=== PATIENT | female | born 1955 | race Hispanic/Latino ===

== ENCOUNTER 2018-01-13 17:10 | Inpatient (IN) | payer OTHER ==
[2018-01-13] MEDS ORDERED: ALBUTEROL 2.5 MG/3 ML NEB SOL NEB SCH (18:00)
[2018-01-13] MEDS: Levofloxacin 750mg IV 750 MG/150 ML BAG IV SCH (18:00)
[2018-01-13 18:04] VITALS: BMI 52.9
[2018-01-13 18:56] LABS: Absolute Lymphocytes (CBC) 1.2 K/uL (0.7-4.9); Absolute Monocytes 0.7 K/uL (0.1-1.3); Absolute Neutrophil 11.3 K/uL (1.8-8.0); Basophils % 0.5 % (0-1.3); Eosinophils % 0.7 % (0-4.4); Hematocrit 29.3 % (36.0-45.0); Lymphocytes % 9.2 % (15.3-44.8); MCH 19.9 pg (27.0-35.0); MCV 67.9 fL (80-100); Monocytes % 5.3 % (3.3-12.3); RBC Red Blood Cell Count 4.32 M/uL (3.86-4.86)
[2018-01-13 19:14] LABS: Albumin 3.5 g/dL (3.2-5.5); Bilirubin Total 0.6 mg/dL (0.3-1.2); Potassium 3.8 mEq/L (3.6-5.0); Protein, Total 7.4 g/dL (6.0-8.3)
[2018-01-13 19:21] LABS: Platelet Estimate ADEQ; Urine White Blood Cell Casts OK
[2018-01-13 19:22] LABS: Anisocytosis 3+; Blood Morphology Comment NOTED (NOT SEEN); Hypochromasia 2+; Ovalocytes SLIGHT; Target Cells FEW
[2018-01-13] MEDS ORDERED: GLUCAGON 1 MG/VIAL IM PRN (19:44)
[2018-01-13] MEDS ORDERED: D50W 25 GM/50 ML SYRINGE IV PRN (19:44)
[2018-01-13] MEDS ORDERED: ACETAMINOPHEN 500 MG TAB PO PRN (19:47)
[2018-01-13] MEDS: ALBUTEROL 2.5 MG/3 ML NEB SOL NEB SCH (20:19)
[2018-01-13] MEDS: INSULIN -REGULAR HUMAN 50 UNIT/0.5 ML ML SQ SCH (21:00)
[2018-01-13] MEDS ORDERED: PNEUMOCOCCAL VACCINE 0.5 ML IMVAC ONE (21:00)
[2018-01-13] MEDS ORDERED: INFLUENZA VACCINE (for 3y+) 0.5 ML DOSE IMVAC ONE (21:00)
[2018-01-13 23:59] LABS: Urine Appearance CLEAR; Urine Bilirubin NEGATIVE (NEG); Urine Blood NEGATIVE (NEG); Urine Color YELLOW; Urine Glucose NEGATIVE (NEG); Urine Protein NEGATIVE (NEG); Urine Specific Gravity 1.015 (1.005-1.030); Urine Urobilinogen 0.2 mg/dL (0.2-1.0); Urine pH 5.5 (5.0-7.0)
[2018-01-14] LABS: Urine Microscopic Reflex NO UMIC
[2018-01-14] MEDS: ZOLPIDEM TARTRATE 5 MG TABLET PO PRN (01:07)
[2018-01-14] MEDS: ALBUTEROL 2.5 MG/3 ML NEB SOL NEB SCH ×4 (01:53→19:43)
[2018-01-14] MEDS: INSULIN -REGULAR HUMAN 50 UNIT/0.5 ML ML SQ SCH ×4 (07:30→21:00)
[2018-01-14] MEDS: PARoxetine HCl 10 MG TAB PO SCH (08:37)
--- NOTE | 2018-01-14 08:46 | HP ---
Date of Admission: 01/13/2018 Chief Complaint: Dyspnea. History Of Present Illness: A 62-year-old female who was treated as an outpatient for her bronchitis , however, on the following day, the patient started having increased dyspnea. The patient was reche cked and she was found to have diffuse crackles and wheezes with a possibility of bronchiolitis, bron chitis or even pneumonia. The patient is admitted for observation. The O2 saturation was 86. The p atient denied any history of aspiration. Past Medical History: Positive for hypertension, type 2 diabetes, obesity, depression. Family History: Hypertension present. Personal History: The patient does not have any current history of smoking. Home Medicines: Please refer to the chart. Review of Systems: No chest pain. Physical Examination: General: Revealed a 62-year-old obese female. Vital Signs: Temperature was 101 in the office. HEENT: Congested throat. Neck: Supple. JVD negative. Chest: Bilateral crackles and wheezes. Heart: Mild tachycardia. Abdomen: Pendulous nontender. Extremities: No edema. Laboratory: White count 52627. Chest x-ray done in [facility] showed evidence of bronchitis. Assessment: 1.Probable bronchitis. 2.Probable bronchiolitis. 3.Possible pneumonia. 4.Hypoxemia from above. 5.Hypertension. 6.Type 2 diabetes. 7.Depression. Plan: The patient seems to be feeling better. Her wheezing is better. She will have repeat chest x -ray today and progress will be monitored. ARASELI/SHAZIA Voice ID: [id number]
--- NOTE | 2018-01-14 09:48 | RAD REPORT ---
EXAM DESCRIPTION: RAD - Chest Pa And Lat (2 Views) - 01/14/2018 9:32 am CLINICAL HISTORY: Chest pain, pneumonia. COMPARISON: None. FINDINGS: The lungs are clear. The heart is mildly prominent in size. No displaced fractures. IMPRESSION: No acute process seen.
[2018-01-14] MEDS: Levofloxacin 750mg IV 750 MG/150 ML BAG IV SCH (16:55)
[2018-01-15] MEDS: ZOLPIDEM TARTRATE 5 MG TABLET PO PRN ×2 (00:20→22:41)
[2018-01-15] MEDS: ALBUTEROL 2.5 MG/3 ML NEB SOL NEB SCH ×4 (01:19→19:38)
[2018-01-15] MEDS: LEVOTHYROXINE SOD 0.05 MG TABLET PO SCH (05:18)
[2018-01-15] MEDS: INSULIN -REGULAR HUMAN 50 UNIT/0.5 ML ML SQ SCH ×4 (07:30→21:00)
[2018-01-15] MEDS: PARoxetine HCl 10 MG TAB PO SCH (10:06)
[2018-01-15] MEDS: METHYLPREDNISOLONE 40 MG INJ IV SCH ×2 (10:07→17:39)
[2018-01-15] MEDS ORDERED: levoFLOXacin 750 MG TAB PO SCH (17:00)
--- NOTE | 2018-01-15 21:13 | PN ---
The patient still has hypoxia with bilateral wheezes. In view of this, the patient will be started o n IV Solu-Medrol and breathing treatments will be continued and she will be re-evaluated in a.m. ARASELI/SHAZIA Voice ID: [id number] Report ID: [id number]
[2018-01-16] MEDS: ALBUTEROL 2.5 MG/3 ML NEB SOL NEB SCH ×2 (01:16→07:57)
[2018-01-16] MEDS: METHYLPREDNISOLONE 40 MG INJ IV SCH ×2 (01:58→08:35)
[2018-01-16] MEDS: LEVOTHYROXINE SOD 0.05 MG TABLET PO SCH (06:48)
[2018-01-16] MEDS: INSULIN -REGULAR HUMAN 50 UNIT/0.5 ML ML SQ SCH ×2 (07:30→11:30)
[2018-01-16] MEDS: PARoxetine HCl 10 MG TAB PO SCH (08:34)
[2018-01-16 09:11] VITALS: O2SAT 89
[2018-01-16 14:37] VITALS: BP 135/65; TEMP 99
== END 2018-01-16 11:59 | disposition home or self-care (01) | DRG 194 ==
LOC: 2ND 17:29 → OBSVTOIN 01-15 15:33
PROVIDERS: ADMIT Internal Medicine; ATTEND Internal Medicine
DX: J18.9 Pneumonia, unspecified organism (principal); J21.9 Acute bronchiolitis, unspecified; J40 Bronchitis, not specified as acute or chronic; F32.9 Major depressive disorder, single episode, unspecified; R09.02 Hypoxemia; I10 Essential (primary) hypertension; E11.8 Type 2 diabetes mellitus with unspecified complications; E66.9 Obesity, unspecified
CPT/HCPCS: 36415; 71046; 80053; 81003; 82962; 83880; 85025; 87040; 87070; 87205; 87804; 90670; 94640; G0378; J2920; Q2035

== ENCOUNTER → 2024-01-17 | Emergency (ER) | payer OTHER ==
[~2024-01-17] MED LIST: CEFTRIAXONE 1000 MG/VIAL ONE; NA CHLORIDE 0.9% 1,000 ML ONE; NA CHLORIDE 0.9% 50 ML ONE; NA CHLORIDE 0.9% 500 ML ONE; WATER FOR INJ,STERILE 10 ML ONE
--- OUTSIDE RECORDS SUMMARY | 2024-01-17 13:33 | XMS REPORT | Clinical Summary ---
Author Name Unknown Organization [facility] [place] Address [address] [place] [address] Care Team Providers Care Cosmetic Consultant Name Role Phone Joana Ace Unavailable Payal Esteban MD Unavailable [phone] Rony Wright MD Primary Care Provider [phone] Sapphire Santoro MD Unavailable [phone] Lisa Villagomez MD Primary Care Provider [phone] Lizandro Rajan MD Unavailable [phone] Omi Yoon MD Unavailable [phone] Allergies Active Allergy Reactions Criticality Noted Date Comments Hydrocodone Anaphylaxis,Swelling ,O ther (See Comments) High 01/07/[address] Latex, Natural Rubber Anaphylaxis High 04/01/2023 ONLY WHEN SHE WEARS LATEX Medications Medication Sig Dispensed Refills Start Date End Date Status levothyroxine 50 mcg cap Take 1 tablet by mouth daily. 0 Active DULoxetine (CYMBALTA) 60 mg capsule Take 1 capsule (60 mg) by mouth daily. 0 Active glimepiride (AMARYL) 1 mg tablet Take 1 tablet (1 mg) by mouth at bedtime. 0 Active pregabalin (LYRICA) 100 mg capsule Take 1 capsule (100 mg) by mouth twice daily. 0 Active OXcarbazepine (TRILEPTAL) 150 mg tablet 0 3 Active spironolactone (ALDACTONE) 25 mg tablet TAKE 1 TABLET BY MOUTH EVERY DAY FOR SWELLING 0 Active PARoxetine (PAXIL) 30 mg tablet Take by mouth every morning. 0 Active chlorthalidone (HYGROTON) 25 mg tablet Take 1 tablet (25 mg) by mouth. Every other day. 0 3 08/31/20 24 Active biotin 5 mg cap Take 5 mg by mouth daily. 0 Active oxyBUTYnin (DITROPAN) 5 mg tablet Take 1 tablet (5 mg) by mouth daily. 0 3 Active cholecalciferol, vitamin D3, (VITAMIN D3) 5,000 units tab tablet Take 1 tablet (5,000 Units) by mouth daily. Pt takes additional 2,000 units for total 7,000 units taken Daily 0 Active anastrozole (ARIMIDEX) 1 mg tabletIndication s:Infiltrating duct carcinoma, 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; Right> TAKE 1 TABLET BY MOUTH EVERY DAY 90 tablet 3 4 Active albuterol (VENTOLIN HFA,PROAIR HFA) 90 mcg/puff inhaler PLEASE SEE ATTACHED FOR DETAILED DIRECTIONS 0 4 Active montelukast (SINGULAIR) 10 mg tablet TAKE 1 TABLET BY MOUTH AT BEDTIME 0 4 Active UNABLE TO FIND Take 5 mg by mouth daily. Rimipril 0 Active dapagliflozin propanediol (Farxiga) 10 mg tab Take by mouth. 0 Active PARoxetine (PAXIL) 40 mg tablet Take 1 tablet (40 mg) by mouth every morning. 0 8 09/22/20 23 Discontinued(Dos e adjustment) pregabalin (LYRICA) 225 mg capsule Take 1 capsule (225 mg) by mouth twice daily. 0 07/21/20 23 Discontinued(The rapy completed) valsartan-hydroc hlorothiazide (DIOVAN-HCT) 160-25 mg per tablet Take 1 tablet by mouth daily. 0 8 04/02/20 23 Discontinued(Not Applicable) olmesartan-hydro chlorothiazide (BENICAR HCT) 40-25 mg per tablet Take 1 tablet by mouth daily. 0 04/30/20 23 Discontinued(Not Applicable) montelukast (SINGULAIR) 10 mg tablet Take 1 tablet (10 mg) by mouth at bedtime. 0 3 04/02/20 23 Discontinued(Not Applicable) metFORMIN (GLUCOPHAGE) 500 mg tablet Take 1 tablet (500 mg) by mouth 2 (two) times a day with meals. 0 8 04/02/20 23 Discontinued(Not Applicable) ketoconazole (NIZORAL) 2% cream Apply 1 application topically to affected area(s) daily. 0 04/23/20 23 Discontinued(The rapy completed) ketoconazole (NIZORAL) 2% shampoo Apply 1 application topically to affected area(s) 3 (three) times a week Thursday, Thursday and Thursday. 0 3 04/23/20 23 Discontinued(The rapy completed) dulaglutide (Trulicity) 1.5 mg/0.5 mL injection Inject 1.5 mg under the skin once a week. 0 08/25/20 Discontinued(The rapy completed) acetaminophen (TylenoL) 325 mg tabletIndication s:Infiltrating duct carcinoma, 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; Right> Take 2 tablets (650 mg) by mouth every 6 (six) hours. 40 tablet 0 3 05/12/20 23 Discontinued(The rapy completed) ibuprofen (ADVIL,MOTRIN) 400 mg tabletIndication s:Infiltrating duct carcinoma, 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; Right> Take 1 tablet (400 mg) by mouth every 8 (eight) hours. 15 tablet 0 3 05/12/20 23 Discontinued(The rapy completed) traMADol (Ultram) 50 mg tabletIndication s:Infiltrating duct carcinoma, 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; Right> Take 1 tablet (50 mg) by mouth every 6 (six) hours as needed for severe pain. 10 tablet 0 3 05/12/20 23 Discontinued(The rapy completed) sulfamethoxazole -trimethoprim (BACTRIM DS) 800 mg-160 mg per tabletIndication s:Infiltrating duct carcinoma, 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; Right>,Estrogen receptor positive status (ER+) Take 1 tablet by mouth twice daily for 5 days. 10 tablet 0 3 05/10/20 23 mupirocin (BACTROBAN) 2% ointmentIndicati ons:Infiltrating duct carcinoma, 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; Right>,Estrogen receptor positive status (ER+) Apply topically to affected area(s) twice daily for 7 days. 22 g 0 3 05/19/20 23 sulfamethoxazole -trimethoprim (Bactrim DS) 800 mg-160 mg per tabletIndication s:Acute cystitis without hematuria, not otherwise specified Take 1 tablet by mouth twice daily for 3 days. 6 tablet 0 3 05/25/20 23 acetaminophen (TylenoL) 325 mg tabletIndication s:Infiltrating duct carcinoma, 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; Right> Take 2 tablets (650 mg) by mouth every 6 (six) hours for 5 days. 40 tablet 0 3 05/30/20 23 traMADol (Ultram) 50 mg tabletIndication s:Infiltrating duct carcinoma, 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; Right> Take 1 tablet (50 mg) by mouth every 12 (twelve) hours as needed for moderate pain. 5 tablet 0 3 06/02/20 23 Discontinued(The rapy completed) sulfamethoxazole -trimethoprim (BACTRIM DS) 800 mg-160 mg per tabletIndication s:Infiltrating duct carcinoma, 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; Right>,Estrogen receptor positive status (ER+) Take 1 tablet by mouth twice daily for 5 days. 10 tablet 0 3 05/30/20 23 mupirocin (BACTROBAN) 2% ointmentIndicati ons:Infiltrating duct carcinoma, 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; Right>,Estrogen receptor positive status (ER+) Apply topically to affected area(s) twice daily for 7 days. 22 g 0 3 06/25/20 23 anastrozole (ARIMIDEX) 1 mg tabletIndication s:Infiltrating duct carcinoma, 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; Right> Take 1 tablet (1 mg) by mouth daily. 90 tablet 0 3 10/06/20 23 Discontinued anastrozole (ARIMIDEX) 1 mg tabletIndication s:Infiltrating duct carcinoma, 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; Right> TAKE 1 TABLET BY MOUTH EVERY DAY 90 tablet 0 3 11/12/19 24 Discontinued(Reo rder) Active Problems Problem Noted Date Diagnosed Date Obstructive sleep apnea syndrome 11/11/2023 Sleep related hypoventilatio n in conditions classified elsewhere 11/11/2023 History of radiation therapy to breast area 06/27 Type 2 diabetes mellitus 05/05/2023 Neuropathy 05/05/2023 Overview: Surgery on elbow left numbness on rt hand. Neuropathy on feet in 2017 Irritable bowel syndrome 05/05/2023 Hypertension 05/05/2023 Disorder of thyroid gland 05/05/2023 Depressive disorder 05/05/2023 Anxiety 05/05/2023 Infiltrating duct carcinoma, 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; Right> 03/30/2023 Cancer Staging:Clinical stage from 03/05/2023:Stage IB(cT2, cN0, cM0, G1, ER+, AZ+, HER2-) - Signed by Claire Pérez PA on 04/01/2023 Pathologic stage from 05/04/2023:Stage IA(pT1mi, pN0, cM0, G1, ER+, AZ+, HER2-) - Signed by Claire Pérez PA on 05/14/2023 Estrogen receptor positive status (ER+) 03/30/20 Encounters Date Type Department Care Team Description 01/15/2024 2:05 PM CDT Hospital Encounter Radiation Oncology [address] [facility], 1st [place] [address] Sapphire Santoro MD Infiltrating duct carcinoma, 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; Right> 01/15/2024 10:43 AM CDT Hospital Encounter Breast Imaging [address] [facility], 5th [place] [address] Dayan Keyes APRN Infiltrating duct carcinoma, 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; Right> 01/15/2024 Travel 11/17/2023 8:30 AM OFFICE SERVICE COORDINATOR [facility] - 8th Floor [address] [facility], 8th [place] [address] Lizandro Rajan MD Infiltrating duct carcinoma, 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; Right>; Estrogen receptor positive status (ER+); Foreign body <Unspecified retained foreign body fragment; Foreign body fragment, unspecified material> 11/17/2023 Travel 11/13/2023 Orders Only [facility] [address] [place] [address], 5th [place] [address] Kay Young PA Infiltrating duct carcinoma, 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; Right> (Primary Dx); Estrogen receptor positive status (ER+); Foreign body <Unspecified retained foreign body fragment; Foreign body fragment, unspecified material> 11/13/2023 Orders Only [facility] - Pulmonology Medicine [address] [place] [address], 6th [place] [address] Nessa Gregory APRN Obstructive sleep apnea (Primary Dx) 11/12/2023 10:30 AM OFFICE SERVICE COORDINATOR Follow[facility]Up [facility] - Medical Oncology [address] [place] [address], 5th [place] [address] Lisa Villagomez MD Infiltrating duct carcinoma, 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; Right> 11/12/2023 8:32 AM OFFICE SERVICE COORDINATOR - 11/12/2023 11:59 PM OFFICE SERVICE COORDINATOR Hospital Encounter [facility] Center [address] [place] [id number] Lisa Villagomez MD Infiltrating duct carcinoma, 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; Right> Discharge Disposition: Home 11/12/2023 6:40 AM OFFICE SERVICE COORDINATOR Ancillary Procedure Nuclear Medicine [address] [place] [address], 6th Floor, [place] [address] Elizabeth Lorenzo APRN Estrogen receptor positive status (ER+); Infiltrating duct carcinoma, 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; Right> 11/12/2023 Travel 10/29/2023 8:34 AM OFFICE SERVICE COORDINATOR - 10/29/2023 11:59 PM OFFICE SERVICE COORDINATOR Hospital Encounter Cardiopulmonary Center - Pulmonology Lab [address] [place] [address], 6th Floor [place], [place] [id number] Orin Avalos MD Obstructive sleep apnea syndrome Discharge Disposition: Home 10/29/2023 Travel 10/08/2023 9:30 AM OFFICE SERVICE COORDINATOR Follow[facility] - [address], 8th [place] [address] Lizandro Rajan MD Infiltrating duct carcinoma, 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; Right>; Estrogen receptor positive status (ER+); Foreign body <Unspecified retained foreign body fragment; Foreign body fragment, unspecified material> 10/08/2023 Travel 10/06/2023 Orders Only [facility] [place] - Medical Oncology [address] [place] [address], 5th Floor [facility] [place] [address] Elizabeth Lorenzo APRN Estrogen receptor positive status (ER+) (Primary Dx); Infiltrating duct carcinoma, 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; Right> 10/06/2023 Refill [facility] [place] - Medical Oncology [address] [place] [address], 5th Floor [facility] [place] [address] Lisa Villagomez MD Infiltrating duct carcinoma, 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; Right> 09/29/2023 11:30 AM OFFICE SERVICE COORDINATOR Telemedicine Cardiopulmonary [place] - Pulmonology Medicine [address] [facility], 6th [place] [address] Omi Yoon MD Balachandran, Diwaker, MD Obstructive sleep apnea syndrome (Primary Dx); Other fatigue; Other sleep disturbances 09/22/2023 1:30 PM OFFICE SERVICE COORDINATOR Procedure visit [facility] [address] [place] [address], 5th [place] [address] Kay Young PA Reece, Gregory P., MD Infiltrating duct carcinoma, 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; Right> (Primary Dx); Estrogen receptor positive status (ER+); Foreign body <Unspecified retained foreign body fragment; Foreign body fragment, unspecified material> 09/22/2023 Travel 09/16/2023 [facility] [address] [place] [address], 5th [place] [address] Kina Myrick MA Pre and Post Procedure Instruction 08/25/2023 3:[address] [facility] [address] [facility], Floor [address] [place] [address] Omi Yoon MD Dietary counseling and surveillance (Primary Dx); Infiltrating duct carcinoma, 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; Right>; Lack of exercise; Other fatigue; Other sleep disturbances 08/25/2023 Telephone [facility] [address] [facility], [facility] [address] [place] [address] Ana Lilia Patel, RN 08/21/2023 [facility] [address] [facility], [facility] [address] [place] [address] Ana Lilia Patel, RN 08/20/2023 10:00 AM CDT [facility] - [address], 8th [place] [address] Lizandro Rajan MD Infiltrating duct carcinoma, 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; Right> (Primary Dx); Estrogen receptor positive status (ER+); Foreign body <Unspecified retained foreign body fragment; Foreign body fragment, unspecified material> 08/20/2023 Travel 07/22/2023 Documentation [facility] [place] [facility] Medical Oncology [address] [place] [address], 5th [place] [address] Diana Sim, RN Fax Authorization for Disclosure of Health information to D 07/21/2023 10:00 AM CDT Follow-Up [facility] [place] - Medical Oncology [address] [place] [address], 5th [place] [address] Lisa Villagomez MD Infiltrating duct carcinoma, 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; Right> 07/21/2023 Telephone [facility] [place] [facility] Medical Oncology [address] [place] [address], 5th [place] [address] Diana Sim, BALTAZAR 07/21/2023 Travel 07/17/2023 Orders Only Radiation Oncology [address] [place] [address], 1st [place] [address] Dayan Keyes APRN Infiltrating duct carcinoma, 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; Right> (Primary Dx) 07/15/2023 10:23 AM CDT - 07/15/2023 11:59 PM CDT Hospital Encounter Radiation Oncology [address] [place] [address] Lisa Villagomez MD Discharge Disposition: Home 07/15/2023 Documentation Radiation Oncology [address] [place] [address], 1st Floor near [facility] [address] Sapphire Santoro MD 07/15/2023 Travel 07/14/2023 12:46 PM CDT - 07/14/2023 11:59 PM CDT Hospital Encounter Breast Center - Radiation Oncology [address] [place] [address], 5th [place] [address] Sapphire Santoro MD Discharge Disposition: Home 07/14/2023 10:32 AM CDT - 07/14/2023 12:45 PM CDT Hospital Encounter Radiation Oncology [address] [place] [address] Lisa Villagomez MD Discharge Disposition: Home 07/14/2023 Travel 07/13/2023 10:52 AM CDT - 07/13/2023 11:59 PM CDT Hospital Encounter Radiation Oncology [address] [place] [address] Lisa Villagomez MD Discharge Disposition: Home 07/13/2023 Telephone Radiation Oncology [address] [place] [address], 1st Floor near [facility] [place] [address] Mayr Grace Brandt RN Appointment (Missed weekly see appointment ) 07/13/2023 Travel 07/10/2023 10:50 AM CDT - 07/10/2023 11:59 PM CDT Hospital Encounter Radiation Oncology [address] [place] [address] Lisa Villagomez MD Discharge Disposition: Home 07/10/2023 Travel 07/09/2023 10:08 AM CDT - 07/09/2023 11:59 PM CDT Hospital Encounter Radiation Oncology [address] [place] [address] Lisa Villagomez MD Discharge Disposition: Home 07/09/2023 9:30 AM CDT [facility] - 8th Floor [address] [place] [address], 8th [place] [address] Lizandro Rajan MD Infiltrating duct carcinoma, 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; Right> (Primary Dx); Estrogen receptor positive status (ER+) 07/09/2023 Documentation Radiation Oncology [address] [place] [address], 1st Floor near [place] [address] Sapphire Santoro MD 07/09/2023 Documentation Radiation Oncology [address] [place] [address], 1st Floor near [facility] [place] [address] Sapphire Santoro MD 07/09/2023 Travel 07/06/2023 6:15 AM CDT - 07/06/2023 11:59 PM CDT Hospital Encounter Radiation Treatment Center [facility] [place] [address] Lisa Villagomez MD Discharge Disposition: Home 06/18/2023 12:17 PM CDT - 06/18/2023 11:59 PM CDT Hospital Encounter Radiation Oncology [address] [place] [address] Sapphire Santoro MD Infiltrating duct carcinoma, 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; Right> Discharge Disposition: Home 06/18/2023 10:30 AM CDT Office Visit Breast Center - Surgical Oncology [address] [place] [address], 5th [place] [address] Rony Wright MD Infiltrating duct carcinoma, 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; Right> 06/18/2023 9:45 AM CDT [facility] - [address] [place] [address], [address] [place] [address] Lizandro Rajan MD Infiltrating duct carcinoma, 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; Right> (Primary Dx); Estrogen receptor positive status (ER+) 06/18/2023 Documentation Radiation Oncology [address] [place] [address], [facility] [place] [address] Sapphire Santoro MD 06/18/2023 Documentation Radiation Oncology [address] [place] [address], 1st [place] [address] Sapphire Santoro MD 06/18/2023 Travel 06/11/2023 9:45 AM CDT [facility] - [address] [place] [address], [address] [place] [address] Lizandro Rajan MD Infiltrating duct carcinoma, 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; Right> (Primary Dx); Estrogen receptor positive status (ER+) 06/11/2023 Travel 06/02/2023 9:45 AM CDT Office Visit [facility] - [address] [place] [address], [address] [place] [address] Lizandro Rajan MD Infiltrating duct carcinoma, 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; Right>; Estrogen receptor positive status (ER+) 06/02/2023 Travel 06/01/2023 [facility] [address] [place] [address], 5th [place] [address] Claire Pérez PA 05/25/2023 3:00 PM CDT - 05/25/2023 6:00 PM CDT Surgery MAIN OR [facility] [place] [address] Rony Wright MD SEGMENTAL MASTECTOMY - RE-EXCISION 05/25/2023 2:50 PM CDT Anesthesia Event MAIN OR [address] [place] [address] Manuel Erickson MD Majekodumi, Jessy, CRNA 05/25/2023 12:32 PM CDT - 05/25/2023 10:19 PM CDT Hospital Encounter MAIN OR [address] [place] [address] Rony Wright MD Infiltrating duct carcinoma, 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; Right> (Primary Dx); Estrogen receptor positive status (ER+) Discharge Disposition: Home 05/25/2023 Travel 05/22/2023 10:30 AM CDT POEM Appointments [facility] [address] [place] [address], 6th Floor [place] [phone] Lisa Villagomez MD 05/22/2023 Orders Only [facility] - Surgical Oncology [address] [place] [address], 5th [place] [address] Claire Pérez PA Acute cystitis without hematuria, not otherwise specified (Primary Dx) 05/21/2023 11:59 PM CDT Anesthesia Event [facility] [address] [place] [address], [address] [place], [place] [address]ator [place] [phone] Breann Garza APRN 05/21/2023 11:56 AM CDT - 05/21/2023 11:59 PM CDT Hospital Encounter Diagnostic Laboratory Center [address] [place] [address] Claire Pérez PA Infiltrating duct carcinoma, 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; Right> Discharge Disposition: Home 05/21/2023 10:45 AM CDT Office Visit [facility] - 8th Floor [address] [place] [address], 8th [place] [address] Lizandro Rajan MD Infiltrating duct carcinoma, 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; Right>; Estrogen receptor positive status (ER+) 05/21/2023 Orders Only [facility] - Surgical Oncology [address] [place] [address], 5th [place] [address] Claire Pérez PA Infiltrating duct carcinoma, 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; Right> (Primary Dx) 05/21/2023 Travel 05/20/2023 Orders Only Radiation Oncology [address] [place] [address], 1st Floor near [facility] [place] [address] Kristi Ortiz MD Infiltrating duct carcinoma, 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; Right> (Primary Dx) 05/20/2023 Orders Only [facility] - Surgical Oncology [address] [place] [address], 5th Floor [facility] [place] [address] Claire Pérez PA Infiltrating duct carcinoma, 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; Right> (Primary Dx) 05/20/2023 Orders Only [facility] [address] [place] [address], [address] [place] [address] Kay Young PA Infiltrating duct carcinoma, 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; Right> (Primary Dx); Estrogen receptor positive status (ER+) 05/19/2023 11:00 AM CDT Clinical Support Breast [address], [address] [place] [address] Billy Johnson, Kelsey Sotomayor Infiltrating duct carcinoma, 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; Right> 05/19/2023 9:44 AM CDT - 05/19/2023 11:59 PM CDT Hospital Encounter Radiation Oncology [address] [place] [address], 1st Floor near [facility] [place] [address] Sapphire Santoro MD Infiltrating duct carcinoma, 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; Right> Discharge Disposition: Home 05/19/2023 Travel 05/14/2023 1:00 PM CDT Follow-Up [facility] [place] - Medical Oncology [address] [place] [address], 5th Floor [facility] [place] [address] Lisa Villagomez MD Infiltrating duct carcinoma, 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; Right> 05/14/2023 10:30 AM CDT Office Visit Breast Center - Surgical Oncology [address] [place] [address], 5th [place] [address] Rony Wright MD Pohlmann, Paula R, MD Infiltrating duct carcinoma, 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; Right> 05/14/2023 Travel 05/12/2023 10:00 AM CDT Office Visit [facility] - 8th Floor [address] [place] [address], 8th [place] [address] Lizandro Rajan MD Infiltrating duct carcinoma, 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; Right> (Primary Dx); Estrogen receptor positive status (ER+) 05/12/2023 Prep for Surgery [facility] [address] [place] [address], [facility] [place] [address] Kay Young PA Infiltrating duct carcinoma, 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; Right> (Primary Dx) 05/12/2023 Travel 05/04/2023 12:20 PM CDT - 05/04/2023 7:00 PM CDT Surgery MAIN OR [address] [place] [address] Rony Wright MD SEGMENTAL MASTECTOMY - MAG SEED LOC 05/04/2023 11:14 AM CDT Anesthesia Event MAIN OR [address] [place] [address] Stella Samuel MD 05/04/2023 9:32 AM CDT - 05/04/2023 11:59 PM CDT Hospital Encounter Breast Imaging [facility], 5th [place] [address] Claire Pérez PA Discharge Disposition: Home 05/04/2023 9:26 AM CDT - 05/05/2023 1:31 PM CDT Hospital Encounter MAIN [id number] [address] [place] [address] Rony Wright MD Infiltrating duct carcinoma, 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; Right> (Primary Dx); Estrogen receptor positive status (ER+) Discharge Disposition: Home 05/04/2023 Travel 05/01/2023 9:00 AM CDT POEM Appointments Per[facility] [address] [place] [address], 6th [place] [address] Rony Wright MD 05/01/2023 Travel 04/30/2023 10:45 AM CDT Consult [facility] - 8th Floor [address] [place] [address], 8th [place] [address] Lizandro Rajan MD Infiltrating duct carcinoma, 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; Right> 04/30/2023 Travel 04/23/2023 11:59 PM CDT Anesthesia Event [facility] [address] [place] [address], [address] [place] [id number] Cecil Ramirez PA 04/23/2023 2:00 PM CDT POEM Appointments [facility] [address] [place] [address], [address] [place], [place] [address] [address] Claire Pérez PA Infiltrating duct carcinoma, 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; Right> 04/23/2023 1:30 PM CDT Ancillary Procedure Nuclear Medicine [address] [place] [address], 6th [facility], [facility] [place] [address] Claire Pérez PA 04/23/2023 10:30 AM CDT - 04/23/2023 11:59 PM CDT Hospital Encounter Breast Imaging [facility], 5th [place] [address] Infiltrating duct carcinoma, 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; Right> Discharge Disposition: Home 04/23/2023 10:00 AM CDT Office Visit Breast Center - Surgical Oncology [address] [place] [address], 5th [place] [address] Rony Wright MD Infiltrating duct carcinoma, 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; Right> 04/23/2023 9:30 AM CDT Ancillary Procedure Nuclear Medicine [address] [place] [address], 6th [facility], [place] [address] Claire Pérez PA 04/23/2023 8:30 AM CDT Ancillary Procedure Nuclear Medicine [address] [place] [address], 6th [facility], [place] [address] Claire Pérez PA Infiltrating duct carcinoma, 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; Right> 04/23/2023 6:22 AM CDT - 04/23/2023 10:29 AM CDT Hospital Encounter Diagnostic Laboratory Center [address] [place] [id number] Claire Pérez PA Infiltrating duct carcinoma, 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; Right> Discharge Disposition: Home 04/23/2023 Travel 04/13/2023 Orders Only Breast Center - Surgical Oncology [address] [place] [address], 5th [place] [address] Claire Pérez PA Infiltrating duct carcinoma, 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; Right> (Primary Dx) 04/10/2023 Lab Requisition [facility] Pancho Colon MD Varma, Tanya, MD Discharge Disposition: Home 04/07/2023 8:00 PM CDT Ancillary Procedure Image Library [address] [place] [id number] Rony Wright MD Cancer 04/07/2023 Orders Only Breast Imaging [address] [place] [phone] Yesenia Neil MD 04/07/2023 Prep for Surgery Breast Center - Surgical Oncology [address] [place] [address], 5[address] [place] [address] Claire Pérez PA Estrogen receptor positive status (ER+) (Primary Dx); Infiltrating duct carcinoma, 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; Right> (Primary Dx) 04/02/2023 2:30 PM CDT Office Visit Breast Center - Multidisciplinary Team [address] [place] [address], [address] [place] [address] [place] [address] Lisa Villagomez MD Infiltrating duct carcinoma, 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; Right> (Primary Dx); Estrogen receptor positive status (ER+) 04/02/2023 2:00 PM CDT Office Visit Breast Center - Multidisciplinary Team [address] [place] [address], [address] [place] [address] [place] [address] Rony Wright MD Infiltrating duct carcinoma, 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 2,07/29/2021,11/28/2020 Surgical History Surgery Date Site/Laterality Comments COLONOSCOPY 2002, 2009, 2019 CHOLECYSTECTOMY 2003 KNEE ARTHROPLASTY 2010 Right knee replacement ELBOW FRACTURE SURGERY 10/26/2010 - 10/25/2011 Right with titanium plates and screws AZ MASTECTOMY PARTIAL 05/04/2023 Breast/Right Procedure: SEGMENTAL MASTECTOMY - MAG SEED LOC; Surgeon: Rony Wright MD; Location: MAIN OR; Service: BREAST AZ INTRAOP SENTINEL LYMPH NODE ID W/DYE INJECTION 05/04/2023 Breast/Right Procedure: INTRAOPERATIVE LYMPHATIC MAPPING; Surgeon: Rony Wright MD; Location: MAIN OR; Service: BREAST AZ BX/EXC LYMPH NODE OPEN DEEP AXILLARY NODE 05/04/2023 Axilla/Right Procedure: SENTINEL NODE BIOPSY - AXILLA; Surgeon: Rony Wright MD; Location: MAIN OR; Service: BREAST AZ ADJACENT TISSUE TRANSFER/REARGMT TRUNK 10 SQCM/< 05/04/2023 Breast/Right Procedure: REARRANGEMENT OF ADJACENT TISSUE FOR REPAIR OF DEFECT OF TRUNK; Surgeon: Lizandro Rajan MD; Location: MAIN OR; Service: PLS - PLASTIC SURGERY AZ MASTOPEXY 05/04/2023 Breast/Bilateral Procedure: MASTOPEXY; Surgeon: Lizandro Rajan MD; Location: MAIN OR; Service: PLS - PLASTIC SURGERY AZ MASTECTOMY PARTIAL 05/25/2023 Breast/Right Procedure: SEGMENTAL MASTECTOMY - RE-EXCISION; Surgeon: Rony Wright MD; Location: MAIN OR; Service: BREAST AZ ADJACENT TISSUE TRANSFER/REARGMT TRUNK 10 SQCM/< 05/25/2023 Breast/Right Procedure: REARRANGEMENT OF ADJACENT TISSUE FOR REPAIR OF DEFECT OF TRUNK; Surgeon: Lizandro Rajan MD; Location: MAIN OR; Service: PLS - PLASTIC SURGERY AZ MASTOPEXY 05/25/2023 Breast/Right Procedure: RE-DO MASTOPEXY; Surgeon: Lizandro Rajan MD; Location: MAIN OR; Service: PLS - PLASTIC SURGERY Medical History Medical History Date Comments Hypertension 2003 Neuropathy 2012 Surgery on elbow left numbness on rt hand. Neuropathy on feet in 2017 Irritable bowel syndrome 2003 Anemia 2020 Arthritis 2005 Disorder of thyroid gland 2003 Type 2 diabetes mellitus 2005 Depressive disorder 2003 Anxiety 2003 Breast cancer 02/2023 right through ro utine screening Obstructive sleep apnea syndrome 11/11/2023 Family History Medical History Relation Name Comments Endocrine tumor Daughter Laura at base of s mall and large intestine Brain cancer Maternal Aunt 1 Kaity T Mahoney d. later i n life Lung cancer Maternal Aunt 2 Zaida Friedman no tobacco, no chemical exposures Head and neck cancer Maternal Aunt 3 luisa unkn own primary Brain cancer Maternal Cousin 1 Breast cancer Maternal Cousin 2 dx.60s Breast cancer Paternal Aunt 1 Nayana Echevarria dx.80s Lung cancer Paternal Aunt 2 Cancer Paternal Uncle 2 aggressive Relation Name Status Comments Brother Alive Daughter Laura Alive Father (Age 66) Maternal Aunt 1 Kaity Mahoney (Age 70s) Maternal Aunt 2 Zaida Friedman (Age 80s) late i n life Maternal Aunt 3 luisa later in lif e Maternal Aunt 4 Maternal Cousin 1 (Age 50) Maternal Cousin 2 (Age 60s) Maternal Grandfather Maternal Grandmother Maternal Uncle 1 Maternal Uncle 2 Maternal Uncle 3 Maternal Uncle 4 Mother (Age 83) Nephew Alive Niece Alive Paternal Aunt 1 Nayana Echevarria Paternal Aunt 2 (Age 80s) Paternal Aunt 3 Paternal Grandfather Paternal Grandmother Paternal Uncle 1 Paternal Uncle 2 Son Alive Social History Tobacco Use Types Packs/Day Years Used Date Smoking Tobacco: Former Cigarettes 1.5 24 0 03/14/1973 - 07/27/2002 Smokeless Tobacco: Never Tobacco Cessation:Counseling Given: Not Answered Alcohol Use Standard Drinks/Week Comments Not Currently 0 (1 standard drink = 0.6 oz pur e alcohol) occ Sex and Gender Information Value Date Recorded Sex Assigned at Not on file Gender Identity Not on file Sexual Orientation Not on file Job Start Date Occupation Industry Not on file Not on file Not on file Obstetrics History Para Term AB IAB SAB Ectopic Multiple Livin g Live Births 2 2 1 2 2 Date Outcome GA Total Labor Labor/2nd/3rd Weight Sex Delivery Anes PTL Radha A1 A5 Name Cl in 1974 Para F Vag-Spont Lin ng 1980 Term M Vag-Spont Lin ng Comments Menarche at age 9 years Para at age 20 years BC 15 years HRT none Breastfeed none Bra Size 44C Last Filed Vital Signs Vital Sign Reading Time Taken Comments Blood Pressure 137/81 01/15/2024 2:46 PM CDT Pulse 78 01/15/2024 2:46 PM CDT Temperature 36.9 C (98.4 F) 01/15/2024 2:46 PM CD T Respiratory Rate 17 01/15/2024 2:46 PM CDT Oxygen Saturation 97% 01/15/2024 2:46 PM CDT Inhaled Oxygen Concentration - - Weight 107 kg (235 lb 14.3 oz) 11/12/2023 9:55 A M OFFICE SERVICE COORDINATOR Height 152.4 cm (5') 11/12/2023 9:55 AM OFFICE SERVICE COORDINATOR Body Mass Index 46.07 11/12/2023 9:55 AM OFFICE SERVICE COORDINATOR Plan of Treatment Upcoming Encounters Date Type Department Care Team Description 02/11/2024 11:00 AM CDT Telemedicine Cardiopulmonary Center - Pulmonology Medicine [address] [place] [address], 6th [place] [address] Graciela Estrada, WASHER OPERATOR [address] [place] [address] 05/12/2024 7:00 AM CDT Appointment Diagnostic Laboratory Center [address] [place] [id number] Elizabeth Lorenzo, WASHER OPERATOR [address] [place] [address] 05/12/2024 8:30 AM CDT Follow-Up Breast Center - Medical Oncology [address] [place] [address], 5th [place] [address] Lisa Villagomez MD [address] [place] [address] Health Maintenance Due Date Last Done Comments COVID-19 Vaccine (2022- 4 season) 2023 06/11/2022, 06/11/2022, 07/29/2021, Additional history exists Influenza Vaccine 06/26/2023 01/13/2018 Medical Devices Implanted Type Area Multiple Resaw Operator Device Identifier Shelf Expiration Date Model / Serial / Lot Knee Replacement Plates And Pins Right: Elbow Procedures Procedure Name Priority Date/Time Associated Diagnosis Comments MAMMO DIGITAL DIAGNOSTIC BILATERAL W DOMINIK Routine 01/15/2024 1:50 PM CDT Infiltrating duct carcinoma, 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; Right> DEXA BONE MINERAL DENSITY BOTH HIPS AND SPINE Routine 11/12/2023 10:25 AM OFFICE SERVICE COORDINATOR Estrogen receptor positive status (ER+) Infiltrating duct carcinoma, 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; Right> .CBC Routine 11/12/2023 9:00 AM OFFICE SERVICE COORDINATOR Infiltrating duct carcinoma, 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; Right> COMPREHENSIVE METABOLIC PANEL Routine 11/12/2023 9:00 AM OFFICE SERVICE COORDINATOR Infiltrating duct carcinoma, 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; Right> COMPLETE BLOOD COUNT W/ DIFFERENTIAL Routine 11/12/2023 9:00 AM OFFICE SERVICE COORDINATOR Infiltrating duct carcinoma, 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 PRS does not need to see pt in preop. CONTACTS: Plastic Surgery CHIDI Young ([phone])OR NURSING: Patient supine, wrap arms for possible sit up Other supplies: 50/50 betadine/saline for irrig ation; full strength betadine to paint prior to implant insertion. 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 PRS does not need to see pt in preop. CONTACTS: Plastic Surgery CHIDI Young ([phone])OR NURSING: Patient supine, wrap arms for possible sit up Other supplies: 50/50 betadine/saline for irrig ation; full strength betadine to paint prior to implant insertion. 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 PRS does not need to see pt in preop. CONTACTS: Plastic Surgery CHIDI Young ([phone])OR NURSING: Patient supine, wrap arms for possible sit up Other supplies: 50/50 betadine/saline for irrig ation; full strength betadine to paint prior to implant insertion. 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; Right> POC GLUCOSE SCREEN Routine 05/05/2023 8:43 AM CDT POC GLUCOSE SCREEN Routine 05/04/2023 8:47 PM CDT XR CHEST 1 VW STAT 05/04/2023 6:47 PM CDT POC GLUCOSE SCREEN Routine 05/04/2023 5:12 PM CDT NM DOSING APPOINTMENT Routine 05/04/2023 3:01 PM CDT Infiltrating duct carcinoma, 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 Patient to be marked by PA in holding. CONTACTS: Plastic Surgery CHIDI Young ([phone])OR NURSING: Patient supine, will wrap arms for sit up bilaterally if agreeable with breast tea m. Other supplies: Cordless light breast retractor available, 50/50 betadine/saline for irrigation; full strength betadine to paint. 3-0 PDS, 3-0 & 4-0 Monocryl, and Gortex CV2, 2- 15 Fr Marino drains with large bulbs, biopatches, Mepilex border, small tegaderm, Mepilex lite, Bactroban, pink surgical bra. 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 Patient to be marked by PA in holding. CONTACTS: Plastic Surgery CHIDI Young ([phone])OR NURSING: Patient supine, will wrap arms for sit up bilaterally if agreeable with breast tea m. Other supplies: Cordless light breast retractor available, 50/50 betadine/saline for irrigation; full strength betadine to paint. 3-0 PDS, 3-0 & 4-0 Monocryl, and Gortex CV2, 2- 15 Fr Marino drains with large bulbs, biopatches, Mepilex border, small tegaderm, Mepilex lite, Bactroban, pink surgical bra. 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 Patient to be marked by PA in holding. CONTACTS: Plastic Surgery CHIDI Young ([phone])OR NURSING: Patient supine, will wrap arms for sit up bilaterally if agreeable with breast tea m. Other supplies: Cordless light breast retractor available, 50/50 betadine/saline for irrigation; full strength betadine to paint. 3-0 PDS, 3-0 & 4-0 Monocryl, and Gortex CV2, 2- 15 Fr Marino drains with large bulbs, biopatches, Mepilex border, small tegaderm, Mepilex lite, Bactroban, pink surgical bra. INTRAOPERATIVE LYMPHATIC MAPPING 05/04/2023 10:48 AM CDT Infiltrating duct carcinoma, 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 Patient to be marked by PA in holding. CONTACTS: Plastic Surgery CHIDI Young ([phone])OR NURSING: Patient supine, will wrap arms for sit up bilaterally if agreeable with breast tea m. Other supplies: Cordless light breast retractor available, 50/50 betadine/saline for irrigation; full strength betadine to paint. 3-0 PDS, 3-0 & 4-0 Monocryl, and Gortex CV2, 2- 15 Fr Marino drains with large bulbs, biopatches, Mepilex border, small tegaderm, Mepilex lite, Bactroban, pink surgical bra. 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 Patient to be marked by PA in holding. CONTACTS: Plastic Surgery PA Kay Young ([phone])OR NURSING: Patient supine, will wrap arms for sit up bilaterally if agreeable with breast tea m. Other supplies: Cordless light breast retractor available, 50/50 betadine/saline for irrigation; full strength betadine to paint. 3-0 PDS, 3-0 & 4-0 Monocryl, and Gortex CV2, 2- 15 Fr Marino drains with large bulbs, biopatches, Mepilex border, small tegaderm, Mepilex lite, Bactroban, pink surgical bra. 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; Right> NM LYMPHOSCINTIGRAPHY BREAST Routine 04/23/2023 11:45 AM CDT Infiltrating duct carcinoma, 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; Right> DIFFERENTIAL Routine 04/23/2023 6:35 AM CDT Infiltrating duct carcinoma, 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; Right> .CBC Routine 04/23/2023 6:35 AM CDT Infiltrating duct carcinoma, 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; Right> COMPLETE BLOOD COUNT W/ DIFFERENTIAL Routine 04/23/2023 6:35 AM CDT Infiltrating duct carcinoma, 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; Right> EKG, 12-LEAD (SCHEDULED) Routine 04/23/2023 Infiltrating duct carcinoma, 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; Right> FRACTIONATED BILIRUBIN Routine 6:08 PM CDT Infiltrating duct carcinoma, 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; Right> TOTAL PROTEIN Routine 04/02/2023 6:08 PM CDT Infiltrating duct carcinoma, 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; Right> ASPARTATE AMINOTRANSFERASE Routine 04/02/2023 6:08 PM CDT Infiltrating duct carcinoma, 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; Right> ALANINE AMINOTRANSFERASE Routine 6:08 PM CDT Infiltrating duct carcinoma, 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; Right> ALKALINE PHOSPHATASE Routine 04/02/2023 6:08 PM CDT Infiltrating duct carcinoma, 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; Right> ALBUMIN LEVEL Routine 04/02/2023 6:08 PM CDT Infiltrating duct carcinoma, 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; Right> CALCIUM LEVEL Routine 04/02/2023 6:08 PM CDT Infiltrating duct carcinoma, 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; Right> .GLOMERULAR FILTRATION RATE Routine 04/02/2023 6:08 PM CDT Infiltrating duct carcinoma, 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; Right> SERUM CREATININE Routine 04/02/2023 6:08 PM CDT Infiltrating duct carcinoma, 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; Right> ELECTROLYTE PANEL Routine 04/02/2023 6:08 PM CDT Infiltrating duct carcinoma, 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; Right> BLOOD UREA NITROGEN Routine 04/02/2023 6:08 PM CDT Infiltrating duct carcinoma, 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; Right> GLUCOSE LEVEL Routine 04/02/2023 6:08 PM CDT Infiltrating duct carcinoma, 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; Right> DIFFERENTIAL Routine 04/02/2023 6:08 PM CDT Infiltrating duct carcinoma, 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; Right> .CBC Routine 04/02/2023 6:08 PM CDT Infiltrating duct carcinoma, 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; Right> PROTHROMBIN TIME Routine 04/02/2023 6:08 PM CDT Infiltrating duct carcinoma, 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; Right> APTT Routine 04/02/2023 6:08 PM CDT Infiltrating duct carcinoma, 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; Right> THYROID STIMULATING HORMONE Routine 04/02/2023 6:08 PM CDT Infiltrating duct carcinoma, 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; Right> HEMOGLOBIN A1C Routine 04/02/2023 6:08 PM CDT Infiltrating duct carcinoma, 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; Right> FREE THYROXINE Routine 04/02/2023 6:08 PM CDT Infiltrating duct carcinoma, 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; Right> COMPREHENSIVE METABOLIC PANEL Routine 04/02/2023 6:08 PM CDT Infiltrating duct carcinoma, 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; Right> COMPLETE BLOOD COUNT W/ DIFFERENTIAL Routine 04/02/2023 6:08 PM CDT Infiltrating duct carcinoma, 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; Right> XR CHEST 2 VW Routine 04/02/2023 5:22 PM CDT Infiltrating duct carcinoma, 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; Right> US CHEST Routine 04/01/2023 9:51 AM CDT Infiltrating duct carcinoma, 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; Right> US BREAST COMPLETE RIGHT Routine 023 9:51 AM CDT Infiltrating duct carcinoma, 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; Right> MAMMO DIGITAL DIAGNOSTIC BILATERAL W DOMINIK Routine 04/01/2023 8:59 AM CDT Infiltrating duct carcinoma, 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; Right> POC CREATININE Routine 04/01/2023 8:25 AM CDT POC CREATININE Routine 04/01/2023 8:19 AM CDT OSI US DUPLEX EXTREMITY VEINS UNILAT Routine 03/05/2023 5:58 PM CDT Cancer OSI MAMMOGRAPHY UNILATERAL RIGHT Routine 03/05/2023 5:39 PM CDT Cancer PATHOLOGY OUTSIDE INTERPRETATION Routine 03/05/2023 OSI MAMMOGRAPHY UNILATERAL RIGHT Routine 02/19/2023 5:42 PM CDT Cancer OSI US BREAST Routine 02/19/2023 5:39 PM CDT Cancer OSI MAMMO BILATERAL Routine 01/28/2023 5:29 PM CDT Cancer after 01/17/2023 Results * Diagnostic Mammogram w Dominik - Bilateral (01/15/2024 1:50 PM CDT) Only the most recent of2 resultswithin the time period is included. Anatomical Region Laterality Modality Breast Bilateral Mammography 01/15/2024 3:21 PM CDT Impressions 01/15/2024 3:21 PM CDT There is no mammographic evidence of malignancy. Follow-up mammogram in 1 year is recommended. BI-RADS Category 2: Benign Finding(s) Narrative 01/15/2024 3:21 PM CDT CLINICAL INDICATION: Patient is a 68 year old female and is seen for history of breast cancer MAMMO DIGITAL DIAGNOSTIC BILATERAL W DOMINIK Digital Mammogram evaluated with Computer Aided Detection (CAD). COMPARISON: The present examination has been compared to prior imaging studies performed at an outside location on 01/28/2023, 02/19/2023 and 03/05/2023, and at [facility] on 04/01/2023. FINDINGS: There are scattered areas of fibroglandular density. 1: There is a post surgical scar with associated post radiation change and surgical clips in the right breast. Patient is status post segmentectomy and re excision with final negative margins, completed XRT on 06/2023. This is baseline post treatment imaging. 2: There are mastopexy changes in both breasts. Tomosynthesis performed in CC and MLO projections. Procedure Note Vandana Souza MD - 01/15/2024 CLINICAL INDICATION: Patient is a 68 year old female and is seen for history of breast cancer MAMMO DIGITAL DIAGNOSTIC BILATERAL W DOMINIK Digital Mammogram evaluated with Computer Aided Detection (CAD). COMPARISON: The present examination has been compared to prior imaging studiesperformed at an outside location on 01/28/2023, 02/19/2023 and 03/05/2023, and at [facility] on 04/01/2023. FINDINGS: There are scattered areas of fibroglandular density. 1: There is a post surgical scar with associated post radiation changeand surgical clips in the right breast. Patient is status post segmentectomyand re excision with final negative margins, completed XRT on 06/2023. This isbaseline post treatment imaging. 2: There are mastopexy changes in both breasts. Tomosynthesis performed in CC and MLO projections. IMPRESSION: There is no mammographic evidence of malignancy. Follow-up mammogram in 1 year is recommended. BI-RADS Category 2: Benign Finding(s) Dayan Keyes APRN IMG MAMMOGRAPHY ORDE RABLES * NM DEXA Bone Mineral Density Both Hips and Spine (11/12/2023 10:25 AM OFFICE SERVICE COORDINATOR) Anatomical Region Laterality Modality Spine Nuclear Medicine 11/12/2023 10:2 9 AM OFFICE SERVICE COORDINATOR Impressions 11/12/2023 11:11 AM OFFICE SERVICE COORDINATOR Osteopenia based on measurements of the right femoral neck. I personally reviewed these image(s) along with the resident's/fellow's interpretations, certify that if a procedure was performed I was physically present, and agree with the final report. Narrative 11/12/2023 11:11 AM OFFICE SERVICE COORDINATOR FULL RESULT: Examination: Bone Mineral Density (DXA), 11/12/2023 12:00 AM Clinical History: 68-year-old postmenopausal female with breast cancer. Indication: Assessment of bone mineral density. Comparison: None. Technique: Bone mineral density was obtained using Hologic dual-energy X-ray absorptiometry. The fluoroscopy is included. Findings: The findings are provided in the below table(s). Bone Density: Region Exam Date BMD T- Z- g/cm2 Score Score AP Spine (L1-L4) 11/12/2023 1.128 0.7 2.7 Femoral Neck (Left) 11/12/2023 0.754 -0.9 0.9 Total Hip (Left) 11/12/2023 0.857 -0.7 0.7 Femoral Neck (Right) 11/12/2023 0.711 -1.2 0.5 Total Hip (Right) 11/12/2023 0.914 -0.2 1.2 1/3 Forearm (Left) 11/12/2023 0.676 -0.3 1.6 For postmenopausal women and men age 50 and over, the World Health Organization criteria for BMD interpretation classify patients as: Normal (T-score at or above -1.0), Osteopenia (T-score between -1.0 and -2.5), or Osteoporosis (T-score at or below -2.5). Procedure Note Tabatha Higgins MD - 11/12/2023 FULL RESULT: Examination: Bone Mineral Density (DXA), 11/12/2023 12:00 AM Clinical History: 68-year-old postmenopausal female with breast cancer. Indication: Assessment of bone mineral density. Comparison: None. Technique: Bone mineral density was obtained using Hologic [id number] absorptiometry. The fluoroscopy is included. Findings: The findings are provided in the below table(s). Bone Density: Region Exam Date BMD T- Z- g/cm2 Score Score AP Spine (L1-L4) 11/12/2023 1.128 0.7 2.7 Femoral Neck (Left) 11/12/2023 0.754 -0.9 0.9 Total Hip (Left) 11/12/2023 0.857 -0.7 0.7 Femoral Neck (Right) 11/12/2023 0.711 -1.2 0.5 Total Hip (Right) 11/12/2023 0.914 -0.2 1.2 1/3 Forearm (Left) 11/12/2023 0.676 -0.3 1.6 For postmenopausal women and men age 50 and over, the World Health Organization criteria for BMD interpretation classify patients as: Normal (T-score at or above -1.0), Osteopenia (T-score between -1.0 and -2.5), or Osteoporosis (T-score at or below -2.5). IMPRESSION: Osteopenia based on measurements of the right femoral neck. I personally reviewed these image(s) along with the resident's/fellow'sinterpretations, certify that if a procedure was performed I wasphysically present, and agree with the final report. Elizabeth Lorenzo APRN [facility] [place]XA ORDERABLES * (ABNORMAL) .CBC (11/12/2023 9:00 AM [facility]) Only the most recent of3 resultswithin the time period is included. White Blood Cell 12.7(H) 4.1 - 10.5 K/uL 11/12/2023 9:12 AM [facility] Red Blood Cell 4.81 3.99 - 5.46 M/uL 11/12/2023 9:12 AM [facility] Hemoglobin 12.1(L) 12.2 - 15.3 g/dL 11/12/2023 9:12 AM [facility] Hematocrit 39.2 36.4 - 46.8 % 11/12/2023 9:12 AM [facility] Mean Cell Volume 82 82 - 99 fL 11/12/2023 9:12 AM [facility] Mean Cell Hemoglobin 25.2(L) 26.6 - 33.2 pg 11/12/2023 9:12 AM [facility] Mean Cell Hemoglobin Concentration 30.9(L) 31.1 - 35.2 g/dL 11/12/2023 9:12 AM [facility] RDW-SD 44.2 37.5 - 49.7 fL 11/12/2023 9:12 AM [facility] Red Cell Diameter Width 15.0 11.6 - 15.5 % 11/12/2023 9:12 AM [facility] Platelet 357 160 - 397 K/uL 11/12/2023 9:12 AM [facility] Mean Platelet Volume 9.9 9.1 - 12.6 fL 11/12/2023 9:12 AM [facility] INRBC 0.0 0.0 - 0.1 /100 WBC 11/12/2023 9:12 AM [facility] Comment: The INRBC (instrument NRBC) value reflects the enumeration of nucleated red blood cells contained in a 200uL sample of whole blood analyzed by the instrument. This value may differ from the NRBC value reported in a manual differential, which is based on a 100 cell differential. Neutrophil % 73.1(H) 43.2 - 72.7 % 11/12/2023 9:12 AM [facility] Lymphocyte % 18.9 16.8 - 46.2 % 11/12/2023 9:12 AM [facility] Monocyte % 4.9(L) 5.1 - 12.5 % 11/12/2023 9:12 AM [facility] Eosinophil % 2.2 0.4 - 6.3 % 11/12/2023 9:12 AM [facility] Basophil % 0.4 0.2 - 1.4 % 11/12/2023 9:12 AM [facility] IGRE % 0.5 0.1 - 1.5 % 11/12/2023 9:12 AM [facility] Comment:The IGRE% includes M etamyelocytes, Myelocytes and Promyelocytes. Neutrophil Abs 9.32(H) 1.95 - 7.25 K/uL 11/12/2023 9:12 AM [facility] Lymphocyte Abs 2.41 1.01 - 3.24 K/uL 11/12/2023 9:12 AM [facility] Monocyte Abs 0.62 0.24 - 0.85 K/uL 11/12/2023 9:12 AM [facility] Eosinophil Abs 0.28 0.02 - 0.50 K/uL 11/12/2023 9:12 AM [facility] Basophil Abs 0.05 0.02 - 0.09 K/uL 11/12/2023 9:12 AM [facility] IG Abs 0.06 0.01 - 0.12 K/uL 11/12/2023 9:12 AM [facility] Blood Venipuncture / Unknown 11/12/2023 9:00 AM OFFICE SERVICE COORDINATOR 11/12/2023 9:03 AM [facility] Lisa Villagomez MD LAB BLOOD ORDERABLES SACHA NARANJO [address] [place] [address] * (ABNORMAL) Comprehensive Metabolic Panel (11/12/2023 9:00 AM [facility]) Bilirubin Total 0.3 <=1.2 mg/dL 11/12/2023 9:49 AM [facility] Comment: Indocyanine Green (ICG) may cause falsely elevated bilirubin results. Total and direct bilirubin must not be measured from samples containing indocyanine green. False elevation of total bilirubin can be seen in patients with IgG concentrations above 28 g/L. This result was previously suppressed from the chart. Bilirubin Direct <0.2 <=0.3 mg/dL 11/12/2023 9:49 AM [facility] Comment: Indocyanine Green (ICG) may cause falsely elevated bilirubin results. Total and direct bilirubin must not be measured from samples containing indocyanine green. This result was previously suppressed from the chart. Bilirubin Indirect 2023 9:49 AM [facility] Comment:Unable to calculate Indirect Bilirubin result due to some parameters are outside reportable range eGFR 43(L) >=60 mL/min/1. 73 sq. m 11/12/2023 9:49 AM [facility] Comment: The eGFRcr is calculated with the 2020 CKD-EPI creatinine equation using creatinine, patient's age, and sex for adults 18 years of age and older. Other factors, especially muscle mass, may affect accuracy and need to be considered. According to the Kidney Disease: Improving Global Outcomes (KDIGO) CKD Work Group 2012 Clinical Practice Guideline, chronic kidney disease (CKD) is defined as the abnormalities of kidney structure or function, present for more than 3 months, with implications for health. CKD should be classified by cause, GFR category, and albuminuria category. KDIGO guidelines provide the following GFR categories. Stage / Description / GFR mL/min/1.73 m2: G1* / Normal or high / >= 90 G2* / Mildly decreased / 60-89 G3a / Mildly to moderately decreased / 45-59 G3b / Moderately to severely decreased / 30-44 G4 / Severely decreased / 15-29 G5 / Kidney failure / <15 *In the absence of evidence of kidney damage, neither G1 nor G2 fulfill criteria for CKD. Tot Protein 7.7 6.4 - 8.3 gm/dL 11/12/2023 9:49 AM [facility] Comment:This result was prev iously suppressed from the chart. Calcium Level Total 9.6 8.2 - 10.2 mg/dL 11/12/2023 9:49 AM [facility] Comment:This result was prev iously suppressed from the chart. Alkaline Phosphatase 92 35 - 104 U/L 11/12/2023 9:49 AM [facility] Comment:This result was prev iously suppressed from the chart. Albumin Level 3.9 3.5 - 5.2 gm/dL 11/12/2023 9:49 AM [facility] Comment:This result was prev iously suppressed from the chart. AST 13 <=32 U/L 11/12/2023 9:49 AM [facility] Comment:This result was prev iously suppressed from the chart. ALT 9 <=33 U/L 11/12/2023 9:49 AM [facility] Comment:This result was prev iously suppressed from the chart. Sodium Level 139 136 - 145 mmol/L 11/12/2023 9:49 AM [facility] Comment:This result was prev iously suppressed from the chart. Potassium Level 4.7(H) 3.4 - 4.5 mmol/L 11/12/2023 9:49 AM [facility] Comment:This result was prev iously suppressed from the chart. Chloride 100 98 - 107 mmol/L 11/12/2023 9:49 AM [facility] Comment:This result was prev iously suppressed from the chart. CO2 31(H) 22 - 29 mmol/L 11/12/2023 9:49 AM [facility] Comment:This result was prev iously suppressed from the chart. Anion Gap 8 4 - 14 mmol/L 11/12/2023 9:49 AM OFFICE SERVICE COORDINATOR [facility] Comment:This result was prev iously suppressed from the chart. Creatinine 1.35(H) 0.51 - 0.95 mg/dL 11/12/2023 9:49 AM OFFICE SERVICE COORDINATOR [facility] Comment:This result was prev iously suppressed from the chart. BUN 38(H) 6 - 23 mg/dL 11/12/2023 9:49 AM [facility] Comment:This result was prev iously suppressed from the chart. Glucose Level 129(H) 70 - 99 mg/dL 11/12/2023 9:49 AM OFFICE SERVICE COORDINATOR [facility] Comment: Effective 05/21/16, the glucose reference intervals have been updated based on [place] Diabetes [employer] guidelines (Standards of Medical Care in Diabetes 2016. Diabetes Care 2016; 39: S13-S22). Fasting blood glucose: Normal: 70-99 mg/dL Impaired fasting glucose (increased risk for diabetes or pre-diabetes): 100-125 mg/dL Diabetes mellitus: >/=126 mg/dL Random blood glucose: Normal: 70-199 mg/dL Note: Random glucose >100 mg/dL is associated with increased risk for diabetes. This result was previously suppressed from the chart. Blood Venipuncture / Unknown 11/12/2023 9:00 AM OFFICE SERVICE COORDINATOR 11/12/2023 9:03 AM [facility] Lisa Villagomez MD LAB BLOOD ORDERABLES [facility] Unless otherwise noted, all lab tests performed by: Division of Pathology and Laboratory Medicine [address] [place] [id number] * CT Breast Simulation without Contrast - Initial (06/18/2023 1:58 PM CDT) Narrative Systemgenerated, Documentation - 06/18/2023 1:58 PM CDT This procedure requires no interpretation from the radiologist. Sapphire Santoro MD IMG RO CT SIM ORDERABLES * POC Glucose Screen (05/25/2023 5:32 PM CDT) Only the most recent of7 resultswithin the time period is included. POC Glucose 90 70 - 99 mg/dL [facility] Comment: Capillary blood samples, e.g. obtained by fingerstick, may have inaccurate results in patients with decreased peripheral blood flow. All POC Glucose screen test results, including critical values, must be interpreted and evaluated in the context of the patients clinical findings. It is recommended to confirm any questionable test results by core lab methodology. Method description: All results are measured using Electrochemistry test methodology. The glucose in the sample mixes with the reagents on the test strip. The reaction produces an electric current. The amount of current produced is proportional to the glucose concentration in the blood. PO Sample Type Capillary POC [facility] Performing Lab [facility] POC [facility] Comment:[facility], [address] [place] [address]; Termite Exterminator: Zulma Morris MD; Waived Point of Care Testing - Annemarie Monroy MD Blood 05/25/2023 5:32 PM CDT 05/25/2023 5:32 PM CDT Rony Wright MD POCT ORDERABLES - DE VICE [facility] Unless otherwise noted, all lab tests performed by: Division of Pathology and Laboratory Medicine [address] [place] [address] * Pathology Surgical Interpretation (05/25/2023 3:34 PM CDT) Only the most recent of2 resultswithin the time period is included. 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 DCIS measures 2.5 mm in greatest dimension. DCIS is present 4 mm from inked margin. Breast tissue with prior surgical site changes. B. Right breast, additional inferior margin, excision: No evidence of malignancy. Breast tissue with prior surgical site changes. 05/28/2023 9:57 AM CDT [facility] Gross Description A: Breast, right, right breast additional posterior margin, clip thomas true margin-- or 17: A portion of fibrofatty tissue, 3.5 x 2.4 x 1.0 cm with clips on the true margin. The true margin is inked black. The specimen is serially sectioned to reveal miner-yellow partially necrotic cut surfaces. SECTION CODE: A1-A5, entire specimen serially sectioned. BM Cold Ischemia and Fixation Times Meet requirements specified in latest version of the ASCO/CAP guidelines. Cold ischemia time: 29m Fixative: 10% Neutral Buffered Formalin In fixative: 05/25/2023 4:03 PM Fixation time: > 6 hours and < 72 hours B: Breast, right, right breast additional inferior margin, clip thomas true margin-- or 17: A 2.5 x 1.5 x 1.2 cm portion of pale yellow-pink fibrofatty tissue. The true margin is inked black. SECTION CODE: B1-B3, entire specimen serially sectioned BM Cold Ischemia and Fixation Times Meet requirements specified in latest version of the ASCO/CAP guidelines. Cold ischemia time: 27m Fixative: 10% Neutral Buffered Formalin In fixative: 05/25/2023 4:03 PM Fixation time: > 6 hours and < 72 hours 05/28/2023 9:57 AM CDT [facility] Disclaimer "Some tests reported here may have been developed and performance characteristics determined by [facility] Pathology and Laboratory Medicine. These tests have not been specifically cleared or approved by the U.S. Food and Drug Administration. If applicable, controls were reviewed and showed appropriate reactivity." 05/28/2023 9:57 AM CDT [facility] Tissue specimen (specimen) (Breast, Right) 05/25/2023 3:34 PM CDT 05/25/2023 4:04 PM CDT Tissue specimen (specimen) (Breast, Right) 05/25/2023 3:36 PM CDT 05/25/2023 4:04 PM CDT Rony Wright MD LAB PATHOLOGY ORDERA [facility] [address] [place] [id number], [place] * (ABNORMAL) Urinalysis Microscopic Exam (05/21/2023 12:29 PM CDT) UA WBC 7(H) 0 - 2 /HPF [facility] Comment: Some reporting parameters within the Urinalysis test have changed due to the implementation of new instrumentation in the [facility] [place], allowing greater sensitivity of measurement. Urinalysis results reported by the [facility] using existing instrumentation, as well as Urinalysis testing performed manually or by backup methodology at the [facility] [place] will remain relatively unchanged. New reporting parameters and units will not be reported for all campuses. UA RBC 1 0 - 2 /HPF [facility] UA Mucous NOT SEEN Not Seen-Trac e /HPF [facility] UA Bacteria NOT SEEN NOT SEEN /HPF [facility] UA Squam Epi 2+(A) None-Occa sional /HPF [facility] UA Hyal Cast 1 0 - 2 /LPF [facility] Urine 05/21/2023 12:2 9 PM CDT 05/21/2023 12:54 PM CDT Claire MURILLO LAB BLOOD ORDERABLES [facility] Unless otherwise noted, all lab tests performed by: Division of Pathology and Laboratory Medicine [address] [place] [id number] * (ABNORMAL) Urinalysis w/Microscopic if Indicated (05/21/2023 12:29 PM CDT) UA Color Yellow Straw-Maui ow [facility] UA Appear Hazy(A) Clear [facility] UA Glucose NEG NEG mg/dL [facility] UA Bili NEG NEG [facility] UA Ketones NEG NEG mg/dL [facility] UA Spec Grav 1.020 1.003 - 1.035 [facility] UA Blood NEG NEG [facility] UA pH 7.0 5.0 - 9.0 [facility] UA Protein 30(A) NEG mg/dL [facility] UA Urobilinogen NEG NEG [facility] UA Nitrite NEG NEG [facility] UA Leuk Est Trace(A) NEG [facility] Urine 05/21/2023 12:2 9 PM CDT 05/21/2023 12:54 PM CDT Claire MURILLO URINE ORDERABLES Performing Organization Address City/[facility] Co de Phone Number [facility] Unless otherwise noted, all lab tests performed by: Division of Pathology and Laboratory Medicine [address] [place] [phone] * (ABNORMAL) Culture, Urine (05/21/2023 12:29 PM CDT) Final Report <10,000 cfu/ml Normal site betsy present. Generally of low significance. Correlate with clinical data and culture history. (A) [facility] Urine, Clean Catch 05/21/2023 12:29 PM CDT 05/21/2023 1:52 PM CDT Claire MURILLO MICROBIOLOGY - GENER AL ORDERABLES Performing Organization Address [facility] de Phone Number [facility] Unless otherwise noted, all lab tests performed by: Division of Pathology and Laboratory Medicine [address] [place] [id number] * XR Chest 1 View (05/04/2023 6:47 PM CDT) Anatomical Region Laterality Modality Chest Digital Radiogra phy 05/04/2023 7:01 PM CDT Impressions 05/04/2023 7:01 PM CDT No radiographic evidence of acute complications. Narrative 05/04/2023 7:01 PM CDT FULL RESULT: Examination: XR CHEST 1 VW, 05/04/2023 6:47 PM Clinical History: Infiltrating duct carcinoma, 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; Right> Indication: Post-Op Comparison: 04/02/2023 Technique: Anteroposterior radiograph of the chest. Findings: The lungs are normal. There is no pleural effusion or pneumothorax. Tortuosity of the aorta. Cardiac silhouette is normal. Clips over the right breast and right axillary region. Procedure Note Darrell Sawyer MD - 05/04/2023 FULL RESULT: Examination: XR CHEST 1 VW, 05/04/2023 6:47 PM Clinical History: Infiltrating duct carcinoma, NOS of overlapping lesionof breast <Female; Right> Indication: Post-Op Comparison: 04/02/2023 Technique: Anteroposterior radiograph of the chest. Findings: The lungs are normal. There is no pleural effusion or pneumothorax.Tortuosity of the aorta. Cardiac silhouette is normal. Clips over theright breast and right axillary region. IMPRESSION: No radiographic evidence of acute complications. Estefani MURILLO [facility]AGNOSTIC [facility]AGI NG ORDERABLES * NM Dosing Appt (05/04/2023 3:01 PM CDT) Anatomical Region Laterality Modality Nuclear Medicine 05/04/2023 4:45 PM CDT Impressions 05/04/2023 4:46 PM CDT Radiocolloid injection for intraoperative sentinel lymph node localization. Narrative 05/04/2023 4:46 PM CDT FULL RESULT: Examination: Dosing Appointment, 05/04/2023 3:01 PM Clinical History: Breast cancer Indication: Lymphatic mapping for intraoperative sentinel lymph node localization. Comparison: None. Technique: Filtered technetium-99m sulfur colloid, 0.55 mCi, was dispensed toDr. Adesoye for injection into the right breast. Findings: No imaging was acquired. Procedure Note Romero Alba MD - 05/04/2023 FULL RESULT: Examination: Dosing Appointment, 05/04/2023 3:01 PM Clinical History: Breast cancer Indication: Lymphatic mapping for intraoperative sentinel lymph nodelocalization. Comparison: None. Technique: Filtered technetium-99m sulfur colloid, 0.55 mCi, was dispensedtoDr. Adesoye for injection into the right breast. Findings: No imaging was acquired. IMPRESSION: Radiocolloid injection for intraoperative sentinel lymph nodelocalization. Claire MURILLO [facility] [place] ORDERABLES * Breast Specimen Radiograph (Right) (05/04/2023 9:32 AM CDT) Anatomical Region Laterality Modality Breast N/A Digital Radiogra phy 05/04/2023 1:43 PM CDT Impressions 05/04/2023 1:45 PM CDT Right segmental mastectomy specimen as above. Narrative 05/04/2023 1:45 PM CDT FULL RESULT: Examination: Specimen Radiograph 05/04/2023 9:32 AM Clinical History: 67-year-old woman with right breast cancer presenting for magnetic seed bracketed segmental mastectomy. Indication: Right breast cancer. Comparison: Mammogram 04/23/2023. Technique: Right breast specimen from magnetic seed bracketed segmental mastectomy is submitted for review. The en bloc specimen is imaged on a single radiographic plate. There are 10 sliced specimens on the second radiographic plate. Findings: There are no magnetic seeds within the specimen. Pathology confirmed the presence of the seeds submitted separately. The migrated biopsy clip is within slice 5. Microcalcifications associated with the known cancer are seen within slices 6-9 without margin involvement. An indeterminant asymmetry closest to the microcalcifications within slice 6 approaches the anterior margin. There are multiple indeterminant asymmetries of unclear relationship to the original cancer within slices 1 through 5. Findings were electronically annotated and discussed with the case pathologist at the time of this dictation. Procedure Note Sarah Alston MD - 05/04/2023 FULL RESULT: Examination: Specimen Radiograph 05/04/2023 9:32 AM Clinical History: 67-year-old woman with right breast cancer presentingfor magnetic seed bracketed segmental mastectomy. Indication: Right breast cancer. Comparison: Mammogram 04/23/2023. Technique: Right breast specimen from magnetic seed bracketed segmentalmastectomy is submitted for review. The en bloc specimen is imaged on asingle radiographic plate. There are 10 sliced specimens on the secondradiographic plate. Findings: There are no magnetic seeds within the specimen. Pathology confirmed thepresence of the seeds submitted separately. The migrated biopsy clip iswithin slice 5. Microcalcifications associated with the known cancer areseen within slices 6-9 without margin involvement. An indeterminantasymmetry closest to the microcalcifications within slice 6 approaches theanterior margin. There are multiple indeterminant asymmetries of unclearrelationship to the original cancer within slices 1 through 5. Findings were electronically annotated and discussed with the casepathologist at the time of this dictation. IMPRESSION: Right segmental mastectomy specimen as above. Claire MURILLO IMG MAMMOGRAPHY [place] [facility] * Mammo Guided Non-Wire Localization Right (04/23/2023 1:41 PM CDT) Anatomical Region Laterality Modality Breast Right Ultrasound, Mamm ography 04/23/2023 2:20 PM CDT Narrative 04/23/2023 2:20 PM CDT Clinical Indication: Patient is a 67 year old female seen for breast cancer. MAMMO GUIDED MAGNETIC SEED PLACEMENT RIGHT Comparison:The present examination has been compared to a prior imaging study performed at [facility] on 04/01/2023. Technique: The patient was positioned in the mammography unit and the lesion in question was identified on one view. Findings: Calcifications with clip in the right breast 12 o'clock position, 4 cm from the nipple. Procedures(s): Mammography-Guided Magnetic Seed Bracket Localization - right breast Primary Proceduralist: Dr. Yareli Pina Call Center Recruiter(s): None Consent: The consent for magnetic seed placement was performed by the referring surgical team. The presence of the signed consent form in the patient's electronic health record was confirmed prior to the procedure. The consent includes a written commitment to have the seed(s) surgically removed Procedure(s) in Detail: A time-out was performed prior to the start of the procedure and the correct patient, procedure, presence of consent, site, and side were confirmed with all members of the team. The skin was prepped in the usual sterile fashion with chlorhexidine. Lidocaine 1% was administered for local anesthesia. Two magnetic seeds were advanced into the lesion of interest. The approach was superior to inferior. After adjustment of the needle tip(s), seed deployment was performed. Post-procedure Mammography: Post-procedure mammography was performed and seed location(s) was confirmed. A diagram was drawn depicting the relationship of the seed(s) and the localized lesion(s). The diagram was uploaded in the patient's electronic health record. Estimated Blood Loss: Minimal Specimen(s) Removed: No Immediate Complications: None Post-procedure diagnosis: Breast cancer Disposition: The patient was discharged from Breast Imaging to the next clinical appointment in good condition. Impression: Technically successful mammography guided magnetic seed bracket localization of the calcifications in the right breast 12 o'clock position, 4 cm from the nipple. Two seeds were placed at the time of localization. Seed 1 is located at the biopsy site and superior/posterior/lateral margin of the disease. Seed 2 is located at the anterior/inferior/medial margin of the calcifications. Procedure Note Yareli Pina MD - 04/23/2023 Clinical Indication: Patient is a 67 year old female seen for breastcancer. MAMMO GUIDED MAGNETIC SEED PLACEMENT RIGHT Comparison:The present examination has been compared to a prior imagingstudy performed at [facility] on 04/01/2023. Technique: The patient was positioned in the mammography unit and thelesion in question was identified on one view. Findings: Calcifications with clip in the right breast 12 o'clockposition, 4 cm from the nipple. Procedures(s): Mammography-Guided Magnetic Seed Bracket Localization -right breast Primary Proceduralist: Dr. Yareli Pina Call Center Recruiter(s): None Consent: The consent for magnetic seed placement was performed by thereferring surgical team. The presence of the signed consent form in thepatient's electronic health record was confirmed prior to the procedure. Theconsent includes a written commitment to have the seed(s) surgically removed Procedure(s) in Detail: A time-out was performed prior to the start ofthe procedure and the correct patient, procedure, presence of consent, site,and side were confirmed with all members of the team. The skin was prepped inthe usual sterile fashion with chlorhexidine. Lidocaine 1% was administeredfor local anesthesia. Two magnetic seeds were advanced into the lesion ofinterest. The approach was superior to inferior. After adjustment of the needletip(s), seed deployment was performed. Post-procedure Mammography: Post-procedure mammography was performed andseed location(s) was confirmed. A diagram was drawn depicting the relationshipof the seed(s) and the localized lesion(s). The diagram was uploaded in thepatient's electronic health record. Estimated Blood Loss: Minimal Specimen(s) Removed: No Immediate Complications: None Post-procedure diagnosis: Breast cancer Disposition: The patient was discharged from Breast Imaging to the nextclinical appointment in good condition. Impression: Technically successful mammography guided magnetic seed bracketlocalization of the calcifications in the right breast 12 o'clock position, 4 cm fromthe nipple. Two seeds were placed at the time of localization. Seed 1 islocated at the biopsy site and superior/posterior/lateral margin of the disease.Seed 2 is located at the anterior/inferior/medial margin of the calcifications. Claire MURILLO [facility] [place] [facility] * NM Lymphoscintigraphy Breast (04/23/2023 11:45 AM CDT) Anatomical Region Laterality Modality Abdomen Nuclear Medicine 04/23/2023 11:4 9 AM CDT Impressions 04/23/2023 12:08 PM CDT Draining right axillary node. Narrative 04/23/2023 12:08 PM CDT FULL RESULT: Examination: Breast Lymphoscintigraphy, 04/23/2023 11:45 AM Clinical History: 67 year old female with right breast carcinoma Indication: Lymphatic mapping for sentinel lymph node localization. Comparison: None. Technique: The patient was injected with 0.55 mCi of filtered technetium-99m sulfur colloid in the right breast x 1. Multiple delayed images of the thorax were obtained in various projections at 2.5 hours post injection. Findings: A focus of intense radiotracer activity is identified in the right breast representing the site of injection. A separate focus of activity is identified in the right axillary region representing the draining node. Procedure Note Elder Pemberton MD - 04/23/2023 FULL RESULT: Examination: Breast Lymphoscintigraphy, 04/23/2023 11:45 AM Clinical History: 67 year old female with right breast carcinoma Indication: Lymphatic mapping for sentinel lymph node localization. Comparison: None. Technique: The patient was injected with 0.55 mCi of filteredtechnetium-99m sulfur colloid in the right breast x 1. Multiple delayedimages of the thorax were obtained in various projections at 2.5 hourspost injection. Findings: A focus of intense radiotracer activity is identified in theright breast representing the site of injection. A separate focus of activity is identified in the right axillary regionrepresenting the draining node. IMPRESSION: Draining right axillary node. Claire MURILLO [facility] [place] ORDERABLES * (ABNORMAL) Differential (04/23/2023 6:35 AM CDT) Only the most recent of2 resultswithin the time period is included. Neutrophil % 68.2(H) 42.0 - 66.0 % [facility] Comment:As part of Different ial performed at [facility], [address] [place] [address], [address], [place] [address] Lymphocyte % 22.6(L) 24.0 - 44.0 % [facility] Monocyte % 7.1(H) 2.0 - 7.0 % [facility] Eosinophil % 1.5 1.0 - 4.0 % [facility] Basophil % 0.4 0.0 - 1.0 % [facility] IGRE % 0.2 0.0 - 0.4 % [facility] Comment: IGRE % count includes Metamyelocytes, Myelocytes, and Promyelocytes. As part of Differential performed at [facility], [facility], [address], [place] [address] Neutrophil Abs 6.62 1.70 - 7.30 K/uL [facility] Lymphocyte Abs 2.20 1.00 - 4.80 K/uL [facility] Monocyte Abs 0.69 0.08 - 0.70 K/uL [facility] Eosinophil Abs 0.15 0.04 - 0.40 K/uL [facility] Basophil Abs 0.04 0.00 - 0.10 K/uL [facility] IG Abs 0.02 0.00 - 0.04 K/uL [facility] Blood 04/23/2023 6:35 AM CDT 04/23/2023 6:38 AM CDT Claire MURILLO LAB BLOOD ORDERABLES Performing Organization Address City/[facility]/ZIP Co de Phone Number [address] [place] [address] * EKG, 12-Lead (Scheduled) (04/23/2023) Claire MURILLO ECG ORDERABLES ROSEANN IECG * (ABNORMAL) .Serum Creatinine (04/02/2023 6:08 PM CDT) Creatinine 3.43(H) 0.51 - 0.95 mg/dL [facility] Blood 04/02/2023 6:08 PM CDT 04/02/2023 6:19 PM CDT Billy Johnson APRN LAB BLOOD ORDERABLE S Performing Organization Address City/[facility] Co de Phone Number [facility] Unless otherwise noted, all lab tests performed by: Division of Pathology and Laboratory Medicine [address] [place] [phone] * (ABNORMAL) Glomerular Filtration Rate (04/02/2023 6:08 PM CDT) eGFR 14(L) >=60 mL/min/1.7 3 sq. m [facility] Comment: The eGFRcr is calculated with the 2020 CKD-EPI creatinine equation using creatinine, patient's age, and sex for adults 18 years of age and older. Other factors, especially muscle mass, may affect accuracy and need to be considered. According to the Kidney Disease: Improving Global Outcomes (KDIGO) CKD Work Group 2012 Clinical Practice Guideline, chronic kidney disease (CKD) is defined as the abnormalities of kidney structure or function, present for more than 3 months, with implications for health. CKD should be classified by cause, GFR category, and albuminuria category. KDIGO guidelines provide the following GFR categories Stage Description GFR mL/min/1.73 m2 G1* Normal or high >= 90 G2* Mildly decreased 60-89 G3a Mildly to moderately decreased 45-59 G3b Moderately to severely decreased 30-44 G4 Severely decreased 15-29 G5 Kidney failure <15 *In the absence of evidence of kidney damage, neither G1 nor G2 fulfill criteria for CKD. Blood 04/02/2023 6:08 PM CDT 04/02/2023 6:19 PM CDT Billy Johnson APRN LAB BLOOD ORDERABLE S [facility] Unless otherwise noted, all lab tests performed by: Division of Pathology and Laboratory Medicine [address] [place] [id number] * Fractionated Bilirubin (04/02/2023 6:08 PM CDT) Pathologist [facility] Bili Total 0.4 <=1.2 mg/dL [facility] Comment: Indocyanine Green (ICG) may cause falsely elevated bilirubin results. Total and direct bilirubin must not be measured from samples containing indocyanine green. False elevation of total bilirubin can be seen in patients with IgG concentrations above 28 g/L. Bili Direct <0.2 <=0.3 mg/dL [facility] Comment:Indocyanine Green (I CG) may cause falsely elevated bilirubin results. Total and direct bilirubin must not be measured from samples containing indocyanine green. Bili Indirect See Note 0.0 - 0.9 mg/dL [facility] Comment:Unable to calculate Indirect Bilirubin result due to some parameters are outside reportable range Blood 04/02/2023 6:08 PM CDT 04/02/2023 6:19 PM CDT Billy Johnson APRN LAB BLOOD ORDERABLE S Performing Organization Address City/[facility]/ZIP Co de Phone Number [facility] Unless otherwise noted, all lab tests performed by: Division of Pathology and Laboratory Medicine [address] [place] [phone] * aPTT (04/02/2023 6:08 PM CDT) [facility] aPTT 30.0 22.8 - 34.2 second(s) [facility] Blood 04/02/2023 6:08 PM CDT 04/02/2023 6:13 PM CDT Narrative [facility] - 04/02/2023 7:30 PM CDT This lab cannot be scheduled at the following locations due to collection/proccessing restrictions: [facility] and [facility]. Billy Johnson APRN LAB BLOOD ORDERABLE S [facility] Unless otherwise noted, all lab tests performed by: Division of Pathology and Laboratory Medicine [address] [place] [phone] * (ABNORMAL) Prothrombin Time with INR (04/02/2023 6:08 PM CDT) PT 14.9(H) 11.9 - 14.1 second(s) [facility] INR 1.23(H) 0.89 - 1.10 VT MD MAE DE LOS SANTOS [facility] [[email or web address]] Blood 04/02/2023 6:08 PM CDT 04/02/2023 6:13 PM CDT Narrative [facility] - 04/02/2023 7:30 PM CDT This lab cannot be scheduled at the following locations due to collection/proccessing restrictions: [facility] DI[facility] LAB CTR and [facility]. Billy Johnson APRN LAB BLOOD ORDERABLE S [facility] Unless otherwise noted, all lab tests performed by: Division of Pathology and Laboratory Medicine [address] [place] [phone] * (ABNORMAL) BUN (04/02/2023 6:08 PM CDT) BUN 78(H) 6 - 23 mg/dL [facility] Blood 04/02/2023 6:08 PM CDT 04/02/2023 6:19 PM CDT Billy Johnson APRN LAB BLOOD ORDERABLE S Performing Organization Address City/[facility]/ZIP Co de Phone Number [facility] Unless otherwise noted, all lab tests performed by: Division of Pathology and Laboratory Medicine [address] [place] [phone] * ALT (04/02/2023 6:08 PM CDT) ALT 9 <=33 U/L VT MD LOPEZ SHERLY [facility] [[email or web address]] Blood 04/02/2023 6:08 PM CDT 04/02/2023 6:19 PM CDT Billy Johnson APRN LAB BLOOD ORDERABLE S [facility] Unless otherwise noted, all lab tests performed by: Division of Pathology and Laboratory Medicine [address] [place] [phone] * Aspartate Aminotransferase (04/02/2023 6:08 PM CDT) AST 15 <=32 U/L [facility] Blood 04/02/2023 6:08 PM CDT 04/02/2023 6:19 PM CDT Billy Johnson APRN LAB BLOOD ORDERABLE S [facility] Unless otherwise noted, all lab tests performed by: Division of Pathology and Laboratory Medicine [address] [place] [phone] * TSH (04/02/2023 6:08 PM CDT) TSH 1.59 0.27 - 4.20 mcunit/mL [facility] Blood 04/02/2023 6:08 PM CDT 04/02/2023 6:19 PM CDT Billy Johnson APRN LAB BLOOD ORDERABLE S Performing Organization Address City/[facility]/ZIP Co de Phone Number [facility] Unless otherwise noted, all lab tests performed by: Division of Pathology and Laboratory Medicine [address] [place] [phone] * Free T4 (04/02/2023 6:08 PM CDT) T4 Free 1.13 0.93 - 1.70 ng/dL [facility] Blood 04/02/2023 6:08 PM CDT 04/02/2023 6:19 PM CDT Billy Johnson APRN LAB BLOOD ORDERABLE S [facility] Unless otherwise noted, all lab tests performed by: Division of Pathology and Laboratory Medicine [address] [place] [phone] * Total Protein (04/02/2023 6:08 PM CDT) Total Protein 7.5 6.4 - 8.3 g/dL [facility] Blood 04/02/2023 6:08 PM CDT 04/02/2023 6:19 PM CDT Billy Johnson APRN LAB BLOOD ORDERABLE S [facility] Unless otherwise noted, all lab tests performed by: Division of Pathology and Laboratory Medicine [address] [place] [id number] * Alkaline Phosphatase (04/02/2023 6:08 PM CDT) Alk Phos 75 35 - 104 U/L [facility] Blood 04/02/2023 6:08 PM CDT 04/02/2023 6:19 PM CDT Billy Johnson APRN LAB BLOOD ORDERABLE S Performing Organization Address [facility] Co de Phone Number [facility] Unless otherwise noted, all lab tests performed by: Division of Pathology and Laboratory Medicine [address] [place] [phone] * (ABNORMAL) Hemoglobin A1c (04/02/2023 6:08 PM CDT) A1C 6.0(H) 4.3 - 5.6 % [facility] Comment: HbA1c values >=6.5% are diagnostic of diabetes mellitus. Diagnosis should be confirmed by repeat testing. Therapeutic Action suggested: >8.0% HbA1c; Goal of therapy: <7.0% HbA1c Blood 04/02/2023 6:08 PM CDT 04/02/2023 6:20 PM CDT Billy Johnson APRN LAB BLOOD ORDERABLE S [facility] Unless otherwise noted, all lab tests performed by: Division of Pathology and Laboratory Medicine [address] [place] [phone] * (ABNORMAL) Glucose Level (04/02/2023 6:08 PM CDT) Glucose Level 62(L) 70 - 99 mg/dL [facility] Comment: Effective 05/21/16, the glucose reference intervals have been updated based on [place] [employer] guidelines (Standards of Medical Care in Diabetes 2016. Diabetes Care 2016; 39: S13-S22). Fasting blood glucose: Normal: 70-99 mg/dL Impaired fasting glucose (increased risk for diabetes or pre-diabetes): 100- 125 mg/dL Diabetes mellitus: >/=126 mg/dL Random blood glucose: Normal: 70-199 mg/dL Note: Random glucose >100 mg/dL is associated with increased risk for diabetes Blood 04/02/2023 6:08 PM CDT 04/02/2023 6:19 PM CDT Billy Johnson APRN LAB BLOOD ORDERABLE S Performing Organization Address City/[facility]/ZIP Co de Phone Number [facility] Unless otherwise noted, all lab tests performed by: Division of Pathology and Laboratory Medicine [address] [place] [address] * Calcium Level (04/02/2023 6:08 PM CDT) Calcium Lvl 9.3 8.4 - 10.2 mg/dL [facility] Blood 04/02/2023 6:08 PM CDT 04/02/2023 6:19 PM CDT Billy Johnson APRN LAB BLOOD ORDERABLE S [facility] Unless otherwise noted, all lab tests performed by: Division of Pathology and Laboratory Medicine [address] [place] [id number] * Albumin Level (04/02/2023 6:08 PM CDT) Albumin Lvl 3.9 3.5 - 5.2 gm/dL [facility] Blood 04/02/2023 6:08 PM CDT 04/02/2023 6:19 PM CDT Billy Johnson APRN LAB BLOOD ORDERABLE S Performing Organization Address City/[facility]/ZIP Co de Phone Number [facility] Unless otherwise noted, all lab tests performed by: Division of Pathology and Laboratory Medicine [address] [place] [phone] * (ABNORMAL) Electrolyte Panel (04/02/2023 6:08 PM CDT) Sodium Lvl 136 136 - 145 mEq/L [facility] Potassium Lvl 5.3(H) 3.5 - 5.1 mEq/L [facility] Chloride 98 98 - 107 mEq/L [facility] CO2 26 22 - 29 mEq/L [facility] Anion Gap 12 4 - 14 mEq/L [facility] Blood 04/02/2023 6:08 PM CDT 04/02/2023 6:19 PM CDT Billy Johnson APRN LAB BLOOD ORDERABLE S Performing Organization Address [facility] Co de Phone Number [facility] Unless otherwise noted, all lab tests performed by: Division of Pathology and Laboratory Medicine [address] [place] [phone] * X-ray Chest 2 Views (04/02/2023 5:22 PM CDT) Anatomical Region Laterality Modality Chest Digital Radiogra phy 04/02/2023 8:51 PM CDT Impressions 04/02/2023 8:53 PM CDT No acute or metastatic disease. Narrative 04/02/2023 8:53 PM CDT FULL RESULT: Examination: XR Chest, 2 Views, 04/02/2023 5:22 PM. Clinical History: Breast cancer. Indication: Preoperative chest. Comparison: None. Technique: PA, lateral and dual-energy chest radiographs, 04/02/2023. Findings: The lungs are clear. No pleural effusion is present. The heart is normal in size with a mildly tortuous aorta. Generalized osteoporosis is noted. Degenerative changes are seen in the thoracic spine. Procedure Note Raulito uQick MD - 04/02/2023 FULL RESULT: Examination: XR Chest, 2 Views, 04/02/2023 5:22 PM. Clinical History: Breast cancer. Indication: Preoperative chest. Comparison: None. Technique: PA, lateral and dual-energy chest radiographs, 04/02/2023. Findings: The lungs are clear. No pleural effusion is present. The heart is normalin size with a mildly tortuous aorta. Generalized osteoporosis is noted.Degenerative changes are seen in the thoracic spine. IMPRESSION: No acute or metastatic disease. Billy Johnson APRN IMG DIAGNOSTIC IMAG ING ORDERABLES * (ABNORMAL) US Chest for Breast Ultrasound (Add-on Only) (04/01/2023 9:51 AM CDT) Anatomical Region Laterality Modality Chest Ultrasound 04/01/2023 10:1 8 AM CDT Impressions 04/01/2023 10:18 AM CDT Biopsy proven right breast malignancy, as above. BI-RADS Category 6: Known Biopsy Proven Malignancy Narrative 04/01/2023 10:18 AM CDT CLINICAL INDICATION: Patient is a 67 year old female and is seen for FILMS COMPARED The present examination has been compared to prior imaging studies performed at an outside location on 02/19/2023 and 03/05/2023, and at [facility] on 04/01/2023. Images were obtained in multiple scanning planes. Real-time sonographic imaging of the right breast (including all 4 quadrants and retroareolar region) was performed. Real-time sonographic imaging of the right regional aurora basins including ultrasound of the chest/mediastinum to evaluate the axillary (level I,II,III) and internal mammary regions was performed. There are areas of prominent ducts with associated calcifications, corresponding to the areas of calcifications with associated focal asymmetry seen on mammogram. Postbiopsy changes with marker clip are seen at 12:00, 5 cm from the nipple, consistent with known biopsy proven malignancy. Right aurora basins: No suspicious lymphadenopathy. Procedure Note Mago Jeffers MD - 04/01/2023 CLINICAL INDICATION: Patient is a 67 year old female and is seen for FILMS COMPARED The present examination has been compared to prior imaging studiesperformed at an outside location on 02/19/2023 and 03/05/2023, and at [facility] on 04/01/2023. Images were obtained in multiple scanning planes. Real-time sonographic imaging of the right breast (including all 4quadrants and retroareolar region) was performed. Real-time sonographic imaging of theright regional aurora basins including ultrasound of the chest/mediastinum toevaluate the axillary (level I,II,III) and internal mammary regions wasperformed. There are areas of prominent ducts with associated calcifications,corresponding to the areas of calcifications with associated focal asymmetry seen on mammogram. Postbiopsy changes with marker clip are seen at 12:00, 5 cmfrom the nipple, consistent with known biopsy proven malignancy. Right aurora basins: No suspicious lymphadenopathy. IMPRESSION: Biopsy proven right breast malignancy, as above. BI-RADS Category 6: Known Biopsy Proven Malignancy Billy Johnson APRN [facility] [place] ORDERABLES * (ABNORMAL) US Breast Complete Right (04/01/2023 9:51 AM CDT) Anatomical Region Laterality Modality Breast Right Ultrasound 04/01/2023 10:1 8 AM CDT Impressions 04/01/2023 10:18 AM CDT Biopsy proven right breast malignancy, as above. BI-RADS Category 6: Known Biopsy Proven Malignancy Narrative 04/01/2023 10:18 AM CDT CLINICAL INDICATION: Patient is a 67 year old female and is seen for FILMS COMPARED The present examination has been compared to prior imaging studies performed at an outside location on 02/19/2023 and 03/05/2023, and at [facility] on 04/01/2023. Images were obtained in multiple scanning planes. Real-time sonographic imaging of the right breast (including all 4 quadrants and retroareolar region) was performed. Real-time sonographic imaging of the right regional aurora basins including ultrasound of the chest/mediastinum to evaluate the axillary (level I,II,III) and internal mammary regions was performed. There are areas of prominent ducts with associated calcifications, corresponding to the areas of calcifications with associated focal asymmetry seen on mammogram. Postbiopsy changes with marker clip are seen at 12:00, 5 cm from the nipple, consistent with known biopsy proven malignancy. Right aurora basins: No suspicious lymphadenopathy. Procedure Note Mago Jeffers MD - 04/01/2023 CLINICAL INDICATION: Patient is a 67 year old female and is seen for FILMS COMPARED The present examination has been compared to prior imaging studiesperformed at an outside location on 02/19/2023 and 03/05/2023, and at [facility] on 04/01/2023. Images were obtained in multiple scanning planes. Real-time sonographic imaging of the right breast (including all 4quadrants and retroareolar region) was performed. Real-time sonographic imaging of theright regional aurora basins including ultrasound of the chest/mediastinum toevaluate the axillary (level I,II,III) and internal mammary regions wasperformed. There are areas of prominent ducts with associated calcifications,corresponding to the areas of calcifications with associated focal asymmetry seen on mammogram. Postbiopsy changes with marker clip are seen at 12:00, 5 cmfrom the nipple, consistent with known biopsy proven malignancy. Right aurora basins: No suspicious lymphadenopathy. IMPRESSION: Biopsy proven right breast malignancy, as above. BI-RADS Category 6: Known Biopsy Proven Malignancy Billy Johnson APRN [facility] * (ABNORMAL) POC Creatinine (04/01/2023 8:25 AM CDT) Only the most recent of2 resultswithin the time period is included. POC Crea 2.7(H) 0.6 - 1.3 mg/dL POC [facility] Comment: Medications, especially hydroxyurea or supplements, such as ascorbate, can interfere with test results causing a falsely and significantly higher result than expected. If a problem is suspected with a patient's result, a sample should be sent to the laboratory for confirmatory testing. Method description: The i-STAT is an analyzer used for in vitro quantification of various analytes in whole blood. The device uses a single disposable cartridge which contains microfabricated sensors, a calibration solution, fluidics system, and a waste chamber. Each test cartridge contains chemically sensitive biosensors on a silicon chip that are configured to perform specific tests. The microfabricated sensors measure analyte concentration by an electrochemical assay. POC EGFR 19(L) >=60 mL/min/1. 73 sq. m POC [facility] Comment: The eGFRcr is calculated with the 2021 CKD-EPI creatinine equation using creatinine, patient's age, and sex for adults 18 years of age and older. Other factors, especially muscle mass, may affect accuracy and need to be considered. According to the Kidney Disease: Improving Global Outcomes (KDIGO) CKD Work Group 2012 Clinical Practice Guideline, chronic kidney disease (CKD) is defined as the abnormalities of kidney structure or function, present for more than 3 months, with implications for health. CKD should be classified by cause, GFR category, and albuminuria category. KDIGO guidelines provide the following GFR categories Stage Description GFR mL/min/1.73 m2 G1* Normal or high >= 90 G2* Mildly decreased 60-89 G3a Mildly to moderately decreased 45-59 G3b Moderately to severely decreased 30-44 G4 Severely decreased 15-29 G5 Kidney failure <15 *In the absence of evidence of kidney damage, neither G1 nor G2 fulfill criteria for CKD. POC Clean Dev 2 POC [facility] Performing Lab [facility] POC [facility] Comment:[facility], [address] [place] [address]; Termite Exterminator: Zulma Morris MD; Waived Point of Care Testing - Annemarie Monroy MD Blood 04/01/2023 8:25 AM CDT 04/01/2023 8:25 AM CDT Billy Johnson APRN POCT ORDERABLES - Erika LEYVA POC [facility] Unless otherwise noted, all lab tests performed by: Division of Pathology and Laboratory Medicine [address] [place] [address] * OSI SPECIMEN RADIOGRAPH (03/05/2023 5:58 PM CDT) Narrative [facility] - 03/31/2023 5:59 PM CDT Study acquired at another institution. For comparison only. No MD Bower originated interpretation requested or available. Billy Johnson APRN IMG OUTSIDE IMAGE O RDERABLES [facility] * [facility]SI MAMMOGRAPHY UNILATERAL RIGHT (03/05/2023 5:39 PM CDT) Only the most recent of2 resultswithin the time period is included. Narrative [facility] - 03/31/2023 5:39 PM CDT Study acquired at another institution. For comparison only. No [facility] originated interpretation requested or available. Billy Johnson APRN IMG OUTSIDE IMAGE O RDERABLES [facility] * Pathology Outside Interpretation (03/05/2023) Materials Received Accession#, Stained, Block, Unstained Collected Received A. [id number], 23 SS, 0 BLOCKS, 0 USS 03/05/2023 04/10/2023 04/14/2023 8:20 AM CDT [employer] [facility] Diagnosis Outside ([id number] , 23 SS, 0 BLOCKS, 0 USS, collected on 03/05/2023): Breast, right, 12 o'clock, stereotactic biopsies: INVASIVE DUCTAL CARCINOMA, LOW GRADE, ALEXA HISTOLOGIC GRADE 1 (SEE COMMENT) DUCTAL CARCINOMA IN SITU, CRIBRIFORM AND MICROPAPILLARY TYPES, LOW NUCLEAR GRADE, ASSOCIATED WITH CALCIFICATIONS, MUCIN PRODUCTION AND WITHOUT NECROSIS. 04/14/2023 8:20 AM CDT [facility] Comment Provided immunohistochemistry for SMMS and tristain (block A4) confirm the presence of an invasive component. Invasive carcinoma measures at least 1 mm in maximum dimension. 04/14/2023 8:20 AM CDT [facility] Biomarker Block(s) Tumor: A4 04/14/2023 8:20 AM CDT [facility] Disclaimer "Some tests reported here may have been developed and performance characteristics determined by [facility]ology and Laboratory Medicine. These tests have not been specifically cleared or approved by the U.S. Food and Drug Administration. If applicable, controls were reviewed and showed appropriate reactivity." 04/14/2023 8:20 AM CDT [facility] Tissue specimen (specimen) 03/05/2023 04/10/2023 3:31 PM CDT Kamla Gomez MD LAB PATHOLOGY ORDERA BLES [facility] [address] [address], [place] * OSI US Breast (02/19/2023 5:39 PM CDT) Narrative [facility] - 03/31/2023 5:40 PM CDT Study acquired at another institution. For comparison only. No [facility] originated interpretation requested or available. Billy Johnson APRN IMG OUTSIDE IMAGE O RDERABLES Performing Organization Address [facility]/ZIP Co de Phone Number [facility] * OSI Mammo (01/28/2023 5:29 PM CDT) Narrative [facility] - 04/09/2023 5:29 PM CDT Study acquired at another institution. For comparison only. No [facility] originated interpretation requested or available. Rony Wright MD IMG OUTSIDE IMAGE OR DERABLES Performing Organization Address [facility]/ZIP Co de Phone Number [facility] after 01/17/2023 Advance Directives Latest Code Status on File Code Status Date Activated Date Inactivated Comments Full Code 05/25/2023 5:09 PM 2023 12:19 AM Code Status History Code Status Date Activated Date Inactivated Comments Full Code 05/04/2023 4:47 PM 05/05/2023 1:53 AM Care Teams Cosmetic Consultant Relationship Specialty Start Date End Date Joana Ace [address] [place] [phone] PCP - External Primary Care Provider Family Practice 03/18/23 Payal Esteban MD [address] [place] [phone] PCP - External Follow Up A General Surgery 03/18/23 Rony Wright MD [address] [place] [phone] PCP - General Breast Surgery 03/25/23 05/12/23 Lisa Villagomez MD [address] [place] [phone] PCP - General Breast Medical Oncology 05/13/23 Sapphire Santoro MD [address] [place] [phone] Physician Radiation Oncology 04/07/23 Lizandro Rajan MD [address] [place] [phone] Consulting Physician Plastic and Reconstructive Surgery 04/30/23 Omi Yoon MD [address] [place] [phone] Consulting Physician Integrative Medicine 08/25/23
--- NOTE | 2024-01-17 14:52 | RAD REPORT ---
EXAM DESCRIPTION: RAD - Chest Single View - 01/17/2024 2:45 pm CLINICAL HISTORY: COUGH Chest pain. COMPARISON: Chest Pa And Lat (2 Views) dated 01/14/2018 FINDINGS: Portable technique limits examination quality. The lungs are grossly clear. The heart is normal in size. No displaced fractures. IMPRESSION: No acute intrathoracic process suspected.
[2024-01-17 15:02] LABS: Absolute Eosinophils 0.1 K/uL (0-0.5); Absolute Lymphocytes (CBC) 1.3 K/uL (0.7-4.9); Absolute Monocytes 0.5 K/uL (0.1-1.3); Absolute Neutrophil 8.2 K/uL (1.8-8.0); Basophils % 0.5 % (0-1.3); Eosinophils % 1.2 % (0-4.4); Hematocrit 37.8 % (36.0-45.0); Lymphocytes % 12.9 % (15.3-44.8); MCH 24.8 pg (27.0-35.0); MCHC 31.8 g/dL (32.0-36.0); MCV 77.9 fL (80-100); MPV 8.5 fL (7.6-11.3); Monocytes % 5.1 % (3.3-12.3); Neutrophils % 80.3 % (41.7-73.7); PT Prothrombin Time 12.6 SECONDS (9.5-12.5); Platelets 338 thou/uL (152-406); Protime INR 1.15; RBC Red Blood Cell Count 4.85 M/uL (3.86-4.86); Red Cell Distribution Width 16.1 % (12.1-15.2)
[2024-01-17 15:19] LABS: SARS-CoV-2 Antigen CONTROL BLUE LINE VIS/BG OK; SARS-CoV-2 Antigen Rapid Res Negative (Negative)
[2024-01-17 15:20] LABS: ALT/SGPT 21 U/L (13-56); AST/SGOT 43 U/L (15-37); Albumin 3.5 g/dL (3.4-5.0); Albumin/Globulin Ratio 0.8 (1.1-1.8); Alkaline Phosphatase 96 U/L (45-117); Anion Gap 9.6 mEq/L (5.0-15.0); BUN Blood Urea Nitrogen 27 mg/dL (7-18); Bicarbonate 30 mEq/L (21-32); Bilirubin Direct < 0.1 mg/dL (0-0.2); Bilirubin Indirect, Calculated ND mg/dL (0.2-0.8); Bilirubin Total 0.5 mg/dL (0.2-1.0); Globulin 4.6 g/dL (2.3-3.5); Glomerular Filtration Rate 30 ml/min (=/>90); Glucose Level 137 mg/dL (74-106); Lipase 41 U/L (13-75); Magnesium 2.2 mg/dL (1.6-2.4); NT PRO-BNP 133 pg/mL (<125); Potassium 4.6 mEq/L (3.5-5.1); Protein, Total 8.1 g/dL (6.4-8.2); Sodium Level 135 mEq/L (136-145)
--- NOTE | 2024-01-17 15:48 | RAD REPORT ---
EXAM DESCRIPTION: CT - Chest Abd Pelvis Wo Con - 01/17/2024 3:21 pm CLINICAL HISTORY: Cough; Abdominal distention; Pain COMPARISON: No comparisons TECHNIQUE: Thin axial CT images of the chest, abdomen, and pelvis, performed without IV contrast. Mu ltiplanar reformats were generated and reviewed. All CT scans are performed using dose optimization technique as appropriate and may include automated exposure control or mA/KV adjustment according to patient size. FINDINGS: The lungs are clear.3 mm right lower lobe calcified granuloma.No pleural or pericardial ef fusion.No intrathoracic adenopathy. The liver, spleen, pancreas, adrenal glands and kidneys are within normal limits. No bowel obstruction, free air, free fluid or abscess. Status post cholecystectomy. No pathologic ly mphadenopathy in the abdomen or pelvis. No worrisome osseous finding. IMPRESSION: No acute findings. No suspicious masses or adenopathy.
--- NOTE | 2024-01-17 16:58 | ER ---
Nurse's Notes [facility] Name: Fanny Nicole Age: 68 yrs Sex: Female : 1955 Arrival Date: 01/17/2024 Time: 13:28 Bed 14 Private MD: Joana Ace Diagnosis: Weakness;Unspecified kidney failure-chronic;Dehydration Presentation: 01/16 13:45 Chief complaint: Patient states: Not feeling good, generalized weakness since nj1 Thursday, not better. Nauseous, hot flashes, no energy. Coronavirus screen: Vaccine status: Patient reports receiving the 2nd dose of the covid vaccine. Ebola Screen: Patient denies travel to an Ebola-affected area in the 21 days before illness onset. No acute neurological deficit is noted. Initial Sepsis Screen: Does the patient meet any 2 criteria? No. Patient's initial sepsis screen is negative. Does the patient have a suspected source of infection? No. Patient's initial sepsis screen is negative. Risk Assessment: Do you want to hurt yourself or someone else? Patient reports no desire to harm self or others. Onset of symptoms was January 13, 2024. 13:45 Method Of Arrival: Ambulatory [facility] 13:45 Acuity: ZANE 3 nj1 Historical: - Allergies: 13:48 Hydrocodone-Acetaminophen; nj1 - PMHx: 13:48 Diabetes mellitus; Sleep apnea; Kidney disease; Hypertensive disorder; Neuropathy; nj1 - PSHx: 13:48 Lumpectomy of breast; Operative procedure on knee; nj1 - Immunization history:: Client reports receiving the 2nd dose of the Covid vaccine. - Social history:: Smoking status: Patient/guardian denies using tobacco, but has a distant history of tobacco abuse. Screenin:00 [place] [facility] Fall Risk Assessment (Adult) History of falling in the last 3 months, db including since admission No falls in past 3 months (0 pts) Confusion or Disorientation No (0 pts) Intoxicated or Sedated No (0 pts) Impaired Gait No (0 pts) Mobility Assist Device Used No (0 pt) Altered Elimination No (0 pt) Score/Fall Risk Level 0 - 2 = Low Risk Oriented to surroundings, Maintained a safe environment. Abuse screen: Denies threats or abuse. Denies injuries from another. Nutritional screening: No deficits noted. Tuberculosis screening: No symptoms or risk factors identified. Assessment: 14:30 Reassessment: Patient appears in no apparent distress at this time. Patient and/or db family updated on plan of care and expected duration. Pain level reassessed. Patient is alert, oriented x 3, equal unlabored respirations, skin warm/dry/pink. General: Appears in no apparent distress. uncomfortable, Behavior is calm, cooperative. Pain: Denies pain. Neuro: Level of Consciousness is awake, alert, obeys commands, Oriented to person, place, time, situation. Respiratory: Airway is patent Respiratory effort is even, Respiratory pattern is regular, symmetrical. 14:30 Reassessment: PATIENT O2 SATURATION DROPPING TO 88% PATIENT PLACED ON 2L NC. WHEN O2 db DROPS PATIENT TAKES A DEEP BREATH AND O2 INCREASES TO 91% ON RA. O2 INCREASED TO 97%. 15:15 Reassessment: Patient appears in no apparent distress at this time. Patient and/or db family updated on plan of care and expected duration. Pain level reassessed. Patient is alert, oriented x 3, equal unlabored respirations, skin warm/dry/pink. 16:00 Reassessment: Patient appears in no apparent distress at this time. Patient and/or db family updated on plan of care and expected duration. Pain level reassessed. Patient is alert, oriented x 3, equal unlabored respirations, skin warm/dry/pink. General: Appears in no apparent distress. comfortable, Behavior is calm, cooperative. 17:26 Reassessment: Patient appears in no apparent distress at this time. Patient and/or db family updated on plan of care and expected duration. Pain level reassessed. Patient is alert, oriented x 3, equal unlabored respirations, skin warm/dry/pink. PATIENT DC PENDING FLUID FINISH INFUSING. Vital Signs: 13:45 BP 123 / 48; Pulse 92; Resp 18; Temp 98.4(O); Pulse Ox 91% on R/A; Weight 109.77 kg; nj1 Height 5 ft. 0 in. ; 14:35 BP 122 / 77; Pulse 87; Resp 18; Pulse Ox 98% on R/A; db 15:24 BP 111 / 74; Pulse 77; Resp 18; Pulse Ox 98% on R/A; db 16:00 BP 104 / 66; Pulse 77; Resp 18; Pulse Ox 98% on R/A; db 16:40 BP 117 / 72 Supine; Pulse 80; db 16:40 BP 116 / 75 Sitting; Pulse 81; db 16:40 BP 116 / 79 Standing; Pulse 79; db 17:58 BP 102 / 88; Pulse 79; Resp 18; Temp 98.6; Pulse Ox 96% ; db 13:45 Body Mass Index 47.26 (109.77 kg, 152.4 cm) nj1 NIH Stroke Scale Scores: 16:28 NIHSS Score: 0 tito ED Course: 13:31 Patient arrived in ED. mr 13:31 Joana Ace DO is Private Physician. mr 13:48 Triage completed. nj1 13:50 Arm band placed on right wrist. nj1 13:54 Chato Bower MD is Attending Physician. tito 14:15 Mena Rahman, BALTAZAR is Primary Nurse. db 14:20 First set of blood cultures drawn by me. db 14:37 Inserted saline lock: 20 gauge in right antecubital area, using aseptic technique. db Blood collected. 14:37 Initial lab(s) drawn, by me, sent to lab. Second set of blood cultures drawn COVID swab db sent to lab. Flu and/or RSV swab sent to lab. 14:47 XRAY Chest (1 view) In Process Unspecified. EDMS 14:47 Bed in low position. Call light in reach. Client placed on continuous cardiac and pulse jg11 oximetry monitoring. NIBP monitoring applied. monitoring manager on. Pulse ox on. 14:47 EKG done. Oxygen administration via nasal cannula \T\ 2L/min Response to oxygen therapy: jg11 symptoms improved. 15:00 Provided Education on: MEDICATIONS AND LABS. db 15:00 No provider procedures requiring assistance completed. db 15:[address] db 15:23 CT Chest Abdomen Pelvis W/O Contrast In Process Unspecified. EDMS 16:53 Urine collected: clean catch specimen, clear. jg11 16:56 Joana Ace DO is Referral Physician. tito 16:56 Kannan Hsu DO is Referral Physician. tito 18:18 IV discontinued, intact, bleeding controlled, No redness/swelling at site. Pressure jg11 dressing applied. 18:19 IV discontinued, intact, bleeding controlled, No redness/swelling at site. db Administered Medications: 16:27 Discontinued: ns 0.9% 1000 ml IV at 100 ml/hr continuous tito 14:40 Drug: NS 0.9% IV 500 ml IV at bolus once Route: IV; Rate: bolus; Site: right db antecubital; 18:00 Follow up: Response: No adverse reaction; IV Status: Completed infusion; IV Intake: db 500ml 14:41 Drug: Rocephin IV 1 grams IV at per protocol once; Given slow IV push per pharmacy db instructions Route: IV; Rate: per protocol; Site: right antecubital; 18:00 Follow up: Response: No adverse reaction; IV Status: Completed infusion; IV Intake: 50mldb 15:30 Drug: NS 0.9% IV 1000 ml IV at 100 ml/hr continuous Route: IV; Rate: 100 ml/hr; Site: db right antecubital; 16:55 Drug: NS 0.9% IV 1000 ml IV at 1 bolus Per protocol; 1000 mL bolus Route: IV; Rate: 1 db bolus; Site: right antecubital; 18:00 Follow up: Response: No adverse reaction; IV Status: Completed infusion; IV Intake: db 1000ml Medication: 18:18 VIS not applicable for this client. db Intake: 18:00 IV: 1000ml; Total: 1000ml. db 18:00 IV: 50ml; Total: 1050ml. db 18:00 IV: 500ml; Total: 1550ml. db Outcome: 16:56 Discharge ordered by . tito 18:18 Discharged to home ambulatory, db 18:18 Condition: stable 18:18 Discharge instructions given to patient, family, Instructed on discharge instructions, follow up and referral plans. 18:21 Patient left the ED. db NIH Stroke Scale - NIH Stroke Score Date: 01/17/2024 Time: 16:28 Total Score = 0 10. Dysarthria (speech clarity - read or repeat words) - 0(Normal) 11. Extinction and Inattention (visual/tactile/auditory/spatial/personal) - 0(No abnormality) 1a. Level of Consciousness (LOC) - 0(Alert) 1b. Level of Consciousness (LOC) (Month \T\ Age) - 0(Both) 1c. LOC Commands (Open \T\ Closes Eyes/Dobby Loom Fixer) - 0(Both) 2. Best Gaze (Lateral Gaze Paresis) - 0(Normal) 3. Visual Field Loss - 0(No visual loss) 4. Facial Palsy - 0(Normal) 5a. Left Arm: Motor (10-second hold) - 0(No drift) 5b. Right Arm: Motor (10-second hold) - 0(No drift) 6a. Left Leg: Motor (5-second hold - always test supine) - 0(No drift) 6b. Right Leg: Motor (5-second hold - always test supine) - 0(No drift) 7. Limb Ataxia (finger/nose \T\ heel/perez - test with eyes open) - 0(Absent) 8. Sensory Loss (pinprick arms/legs/face) - 0(Normal) 9. Best Language: Aphasia (description/naming/reading) - 0(No aphasia) Initials: tito Signatures: Dispatcher [employer] EDChato Ruiz MD MD cha Rivera, Mary, Mena Chris, RN RN Jessica Herrera RN RN Hugo Patino jg1 Corrections: (The following items were deleted from the chart) 13:49 13:48 Allergies: No Known Allergies; [place] [id number] 13:50 13:48 Social history: Smoking status: Patient denies any tobacco usage or [facility] history of. [facility] 14:52 14:37 Initial lab(s) drawn, by ne, sent to lab. First set of blood cultures db drawn COVID swab sent to lab. Flu and/or RSV swab sent to lab. db 17:30 16:40 BP 117 / 72 Supine; jg11 db 17:30 16:40 BP 116 / 75 Sitting; jg11 db 17:30 16:40 BP 116 / 79 Standing; jg11 db
--- NOTE | 2024-01-17 16:58 | EDPHYS ---
Physician Documentation [facility] Name: Fanny Nicole Age: 68 yrs Sex: Female : 1955 Arrival Date: 01/17/2024 Time: 13:28 Bed 14 Private MD: Joana Ace ED Physician Chato Bower HPI: 01/16 16:28 This 68 yrs old Female presents to ER via Ambulatory with complaints of tito General Weakness. 16:28 The patient presents to the emergency department with weakness of the entire body, tito generalized weakness. Onset: The symptoms/episode began/occurred 2 day(s) ago. Context: occurred at an unknown location. Historical: - Allergies: 13:48 Hydrocodone-Acetaminophen; nj1 - PMHx: 13:48 Diabetes mellitus; Sleep apnea; Kidney disease; Hypertensive disorder; Neuropathy; nj1 - PSHx: 13:48 Lumpectomy of breast; Operative procedure on knee; nj1 - Immunization history:: Client reports receiving the 2nd dose of the Covid vaccine. - Social history:: Smoking status: Patient/guardian denies using tobacco, but has a distant history of tobacco abuse. ROS: 16:28 Constitutional: Negative for fever, chills, and weight loss, Eyes: Negative for injury, tito pain, redness, and discharge, ENT: Negative for injury, pain, and discharge, Neck: Negative for injury, pain, and swelling, Cardiovascular: Negative for chest pain, palpitations, and edema, Respiratory: Negative for shortness of breath, cough, wheezing, and pleuritic chest pain, Abdomen/GI: Negative for abdominal pain, nausea, vomiting, diarrhea, and constipation, Back: Negative for injury and pain, : Negative for injury, bleeding, discharge, and swelling, MS/Extremity: Negative for injury and deformity, Skin: Negative for injury, rash, and discoloration, Psych: Negative for depression, anxiety, suicide ideation, homicidal ideation, and hallucinations, Allergy/Immunology: Negative for hives, rash, and allergies, Endocrine: Negative for neck swelling, polydipsia, polyuria, polyphagia, and marked weight changes, Hematologic/Lymphatic: Negative for swollen nodes, abnormal bleeding, and unusual bruising, 16:28 Neuro: Positive for weakness, Exam: 16:28 Constitutional: This is a well developed, well nourished patient who is awake, alert, tito and in no acute distress. Head/Face: Normocephalic, atraumatic. Eyes: Pupils equal round and reactive to light, extra-ocular motions intact. Lids and lashes normal. Conjunctiva and sclera are non-icteric and not injected. Cornea within normal limits. Periorbital areas with no swelling, redness, or edema. ENT: Nares patent. No nasal discharge, no septal abnormalities noted. Tympanic membranes are normal and external auditory canals are clear. Oropharynx with no redness, swelling, or masses, exudates, or evidence of obstruction, uvula midline. Mucous membranes moist. Neck: Trachea midline, no thyromegaly or masses palpated, and no cervical lymphadenopathy. Supple, full range of motion without nuchal rigidity, or vertebral point tenderness. No Meningismus. Chest/axilla: Normal chest wall appearance and motion. Nontender with no deformity. No lesions are appreciated. Cardiovascular: Regular rate and rhythm with a normal S1 and S2. No gallops, murmurs, or rubs. Normal PMI, no JVD. No pulse deficits. Respiratory: Lungs have equal breath sounds bilaterally, clear to auscultation and percussion. No rales, rhonchi or wheezes noted. No increased work of breathing, no retractions or nasal flaring. Abdomen/GI: Soft, non-tender, with normal bowel sounds. No distension or tympany. No guarding or rebound. No evidence of tenderness throughout. Back: No spinal tenderness. No costovertebral tenderness. Full range of motion. Female : Normal external genitalia. Skin: Warm, dry with normal turgor. Normal color with no rashes, no lesions, and no evidence of cellulitis. MS/ Extremity: Pulses equal, no cyanosis. Neurovascular intact. Full, normal range of motion. Neuro: Awake and alert, GCS 15, oriented to person, place, time, and situation. Cranial nerves II-XII grossly intact. Motor strength 5/5 in all extremities. Sensory grossly intact. Cerebellar exam normal. Normal gait. Psych: Awake, alert, with orientation to person, place and time. Behavior, mood, and affect are within normal limits. 16:33 ECG was reviewed by the Attending Physician. tito 16:46 Musculoskeletal/extremity: DVT Exam: No signs of deep vein thrombosis. no pain, no tito swelling, no tenderness, negative Homans' sign noted on exam, no appreciated bluish discoloration, no erythema, no increased warmth, Vital Signs: 13:45 BP 123 / 48; Pulse 92; Resp 18; Temp 98.4(O); Pulse Ox 91% on R/A; Weight 109.77 kg; nj1 Height 5 ft. 0 in. ; 14:35 BP 122 / 77; Pulse 87; Resp 18; Pulse Ox 98% on R/A; db 15:24 BP 111 / 74; Pulse 77; Resp 18; Pulse Ox 98% on R/A; db 16:00 BP 104 / 66; Pulse 77; Resp 18; Pulse Ox 98% on R/A; db 16:40 BP 117 / 72 Supine; Pulse 80; db 16:40 BP 116 / 75 Sitting; Pulse 81; db 16:40 BP 116 / 79 Standing; Pulse 79; db 17:58 BP 102 / 88; Pulse 79; Resp 18; Temp 98.6; Pulse Ox 96% ; db 13:45 Body Mass Index 47.26 (109.77 kg, 152.4 cm) [facility] NIH Stroke Scale Scores: 16:28 NIHSS Score: 0 tito MDM: 13:[address] [facility] 16:30 Differential Diagnosis altered mental status, sepsis, flu. Data reviewed: vital signs, [facility] nurses notes, lab test result(s), EKG, radiologic studies, plain films. Consideration of Admission/Observation Escalation of care including admission/observation considered. I considered the following discharge prescriptions or medication management in the emergency department Medications were administered in the Emergency Department. See MAR. Independent interpretation of the following test(s) in the Emergency Department EKG: See my EKG interpretation above. Test considered but Not performed: Ultrasound no abd / renal usg. Care significantly affected by the following chronic conditions: Diabetes, Hypertension, Obesity, Chronic Kidney Disease. Counseling: I had a detailed discussion with the patient and/or guardian regarding the historical points, exam findings, and any diagnostic results supporting the discharge/admit diagnosis, lab results, radiology results, the need for outpatient follow up, for definitive care, a family practitioner, an delivery rep. 01/16 13:58 Order name: Basic Metabolic Panel; Complete Time: 16:14 [facility] 01/16 13:58 Order name: CBC with Diff; Complete Time: 15:11 01/16 13:58 Order name: LFT's; Complete Time: 16:14 01/16 13:58 Order name: Magnesium; Complete Time: 16:14 01/16 13:58 Order name: NT PRO-BNP; Complete Time: 16:14 01/16 13:58 Order name: PT-INR; Complete Time: 15:11 01/16 13:58 Order name: Troponin HS; Complete Time: 16:14 01/16 13:58 Order name: Lipase; Complete Time: 16:14 01/16 13:58 Order name: Urinalysis w/ reflexes 01/16 13:58 Order name: Blood Culture Adult (2) 01/16 13:58 Order name: Lactate w/ 2H reflex if indic.; Complete Time: 16:14 01/16 13:58 Order name: SARS RAPID; Complete Time: 16:14 01/16 13:58 Order name: Flu; Complete Time: 16:14 01/16 13:58 Order name: XRAY Chest (1 view); Complete Time: 15:11 01/16 13:58 Order name: CT Chest Abdomen Pelvis W/O Contrast; Complete Time: 16:14 01/16 13:58 Order name: EKG; Complete Time: 13:59 01/16 13:58 Order name: Cardiac monitoring; Complete Time: 14:46 01/16 13:58 Order name: EKG - Nurse/Tech; Complete Time: 14:46 01/16 13:58 Order name: IV Saline Lock; Complete Time: 14:46 01/16 13:58 Order name: Labs collected and sent; Complete Time: 14:46 01/16 13:58 Order name: O2 Per Protocol; Complete Time: 14:46 01/16 13:58 Order name: O2 Sat Monitoring; Complete Time: 14:46 01/16 16:27 Order name: Orthostatics; Complete Time: 16:41 [facility] EC:33 Rate is 87 beats/min. Rhythm is regular. QRS [place] is Normal. ME interval is normal. QRS tito interval is normal. QT interval is normal. No Q waves. T waves are Normal. No ST changes noted. Clinical impression: NSR w/ Non-specific ST/T Changes and No evidence of ischemia. Interpreted by me. Reviewed by me. Administered Medications: 16:27 Discontinued: ns 0.9% 1000 ml IV at 100 ml/hr continuous tito 14:40 Drug: NS 0.9% IV 500 ml IV at bolus once Route: IV; Rate: bolus; Site: right db antecubital; 18:00 Follow up: Response: No adverse reaction; IV Status: Completed infusion; IV Intake: db 500ml 14:41 Drug: Rocephin IV 1 grams IV at per protocol once; Given slow IV push per pharmacy db instructions Route: IV; Rate: per protocol; Site: right antecubital; 18:00 Follow up: Response: No adverse reaction; IV Status: Completed infusion; IV Intake: 50mldb 15:30 Drug: NS 0.9% IV 1000 ml IV at 100 ml/hr continuous Route: IV; Rate: 100 ml/hr; Site: db right antecubital; 16:55 Drug: NS 0.9% IV 1000 ml IV at 1 bolus Per protocol; 1000 mL bolus Route: IV; Rate: 1 db bolus; Site: right antecubital; 18:00 Follow up: Response: No adverse reaction; IV Status: Completed infusion; IV Intake: db 1000ml Disposition Summary: 01/17/24 16:56 Discharge Ordered Notes: Location: Home tito Problem: new tito Symptoms: have improved tito Condition: Stable tito Diagnosis - Weakness ttio - Unspecified kidney failure - chronic tito - Dehydration tito Followup: tito - With: Joana Ace, DO - When: 2 - 3 days - Reason: Recheck today's complaints, Continuance of care, Re-evaluation by your physician Followup: tito - With: Kannan Hsu, DO - When: 2 - 3 days - Reason: Recheck today's complaints, Re-evaluation by your physician Discharge Instructions: - Discharge Summary Sheet tito - Dehydration, Elderly tito - Weakness tito - Weakness, [id number] tito - Chronic Kidney Disease, Adult, [id number] tito - Dehydration, Elderly, [id number] tito - Deconditioning tito Forms: - Medication Reconciliation Form tito - Thank You Letter tito - Antibiotic Education tito - Prescription Opioid Use tito - Patient Portal Instructions tito - Leadership Thank You Letter tito NIH Stroke Scale - NIH Stroke Score Date: 01/17/2024 Time: 16:28 Total Score = 0 10. Dysarthria (speech clarity - read or repeat words) - 0(Normal) 11. Extinction and Inattention (visual/tactile/auditory/spatial/personal) - 0(No abnormality) 1a. Level of Consciousness (LOC) - 0(Alert) 1b. Level of Consciousness (LOC) (Month \T\ Age) - 0(Both) 1c. LOC Commands (Open \T\ Closes Eyes/Aircraft Pneudraulic Systems Mechanic) - 0(Both) 2. Best Gaze (Lateral Gaze Paresis) - 0(Normal) 3. Visual Field Loss - 0(No visual loss) 4. Facial Palsy - 0(Normal) 5a. Left Arm: Motor (10-second hold) - 0(No drift) 5b. Right Arm: Motor (10-second hold) - 0(No drift) 6a. Left Leg: Motor (5-second hold - always test supine) - 0(No drift) 6b. Right Leg: Motor (5-second hold - always test supine) - 0(No drift) 7. Limb Ataxia (finger/nose \T\ heel/perez - test with eyes open) - 0(Absent) 8. Sensory Loss (pinprick arms/legs/face) - 0(Normal) 9. Best Language: Aphasia (description/naming/reading) - 0(No aphasia) Initials: tito Signatures: Dispatcher [employer] EDChato Ruiz MD MD cha Benton, Danielle, RN RN Jessica Fraga RN RN nj1 Corrections: (The following items were deleted from the chart) 13:49 13:48 Allergies: No Known Allergies; [place] [id number] 13:50 13:48 Social history: Smoking status: Patient denies any tobacco usage or [facility] history of. nj1
[2024-01-17 17:44] LABS: Specific Gravity 1.019 (1.005-1.030); Sqamous Epithelial <5 /HPF (None Seen); Urine Bacteria <20 /HPF (<20); Urine Bilirubin NEGATIVE (Negative); Urine Blood Negative (Negative); Urine Clarity Clear (Clear); Urine Color Light-Yellow (Yellow); Urine Culture Reflex Order NOT NEEDED; Urine Glucose TRACE (Negative); Urine Ketones NEGATIVE (Negative); Urine Microscopic Reflex YN ORDER UMIC; Urine Mucus Slight /HPF (None Seen); Urine Nitrite NEGATIVE (Negative); Urine Protein NEGATIVE (Negative); Urine RBC <5 /HPF (None Seen); Urine Urobilinogen Normal (Normal); Urine WBC <5 /HPF (<5)
[2024-01-17 19:00] VITALS: BP 102/88; TEMP 98.6; O2SAT 96
--- NOTE | 2024-01-18 14:16 | EKG ---
Test Date: 2024-01-17 Test Time: 14:29:17 [place]: DAVEY MEASUREMENT RESULTS: Intervals: Rate: 87 WA: 154 QRSD: 78 QT: 344 QTc: 413 [place]: P: 75 WA: 154 QRS: -52 T: 47 INTERPRETIVE STATEMENTS: Normal sinus rhythm Low voltage QRS Left anterior fascicular block Cannot rule out Anterior infarct, age undetermined Abnormal ECG Compared to ECG 01/29/2005 14:26:00 Low QRS voltage now present Left anterior fascicular block now present Myocardial infarct finding now present Electronically Signed On 01-18-24 14:13:48 CDT by Zelalem Valdivia
== END ==
LOC: ER 13:28
DX: E11.22 Type 2 diabetes mellitus with diabetic chronic kidney disease (principal); I12.9 Hypertensive chronic kidney disease with stage 1 through stage 4 chronic kidney disease, or unspecified chronic kidney disease; N18.9 Chronic kidney disease, unspecified; E86.0 Dehydration; Z11.52 Encounter for screening for COVID-19; Z88.5 Allergy status to narcotic agent
CPT/HCPCS: 93005; 87040 ×2; 85025; 81001; 80048; 36415; 83735; 85610; 80076; 83605; 84484; 83690; 83880; 87804 ×2; 71250; 74176; 71045; 87811; J7040; J7030; J0696; 96365; 96366; 99285